=== PATIENT | male | born 1935 | race Caucasian/White ===

== ENCOUNTER 2018-12-25 11:32 | Emergency (ER) | payer OTHER, MEDICARE ==
[2018-12-25] MEDS ORDERED: Sodium Chloride 0.9% 10 ML Syringe FLUSH PRN (11:48)
[2018-12-25 12:35] LABS: CHLORIDE,CL 97 mmol/L (98-107); SODIUM,NA 136 mmol/L (136-145)
--- NOTE | 2018-12-25 12:38 | EDM.PDOC ---
ED HPI GENERAL MEDICAL PROBLEM - General Stated Complaint: NUMBSNESS AND CHEST PAIN Time Seen by Provider: 12/25/18 12:00 Source of Information: Reports: Patient History Limitations: Reports: No Limitations - History of Present Illness INITIAL COMMENTS - FREE TEXT/NARRATIVE: Pt. presents to ER via wheelchair. He initially was brought to the clinic but he was sent to the ER. Pt. primary complaint is that of substernal chest pain, shortness of breath, and weakness in his hands. Pt. has a longstanding history of CAD and has chronic diastolic CHF. Pt. has been retaining increased fluid over the past week- states that he is 215 but typically is at 205. Pt. also has a history of stage 3 CKD. Pt. significant other states that the patient was not complaining of anything when she left to go exercise this AM. She states that he was complaining of the numbness in his hands, increased shortness of breath and chest pain when she got home. She made an appointment for the patient at the clinic who subsequently sent him to be seen in ED. On arrival to ED, pt. reported that his chest pain was starting to resolve. Pt. stated the the chest pain was worse with deep breathing. Onset: Today Onset Date: 12/25/18 Location: Reports: Chest Middle Chest Pain Score (Numeric/FACES): 4 - Related Data Allergies Allergy/AdvReac Type Severity Reaction Status Date / Time amoxicillin Allergy Rash Verified 12/25/18 12:39 simvastatin [From Zocor] Allergy Leg Cramps Verified 12/25/18 12:39 Home Meds: Home Meds Finasteride [Proscar] 5 mg PO DAILY 05/01/14 [History] Pravastatin [Pravachol] 20 mg PO DAILY 05/01/14 [History] Tamsulosin [Flomax] 0.4 mg PO BEDTIME 05/01/14 [History] Warfarin [Coumadin] 2.5 mg PO DAILY 03/16/15 [History] Albuterol [Ventolin HFA] 2 puff INH Q4H PRN 04/29/15 [History] Aspirin [Halfprin] 81 mg PO DAILY 04/29/15 [History] Magnesium Oxide 400 mg PO DAILY 04/29/15 [History] Nitroglycerin [Nitrostat] 0.4 mg SL Q5M PRN 04/29/15 [History] Omeprazole 20 mg PO DAILY 04/29/15 [History] Pramipexole [Mirapex] 2 - 3 tab PO ASDIRECTED 04/29/15 [History] Tiotropium [Spiriva HandiHaler] 18 mcg INH DAILY 04/29/15 [History] Zinc 100 mg PO DAILY 04/29/15 [History] Furosemide [Lasix] 60 mg PO BID 03/28/16 [History] Lutein/Minerals/Vit A,C & E [Ocuvite] 1 tab PO DAILY 05/27/17 [History] Memantine HCl [Namenda] 5 mg PO BID 05/27/17 [History] Metoprolol Tartrate 37.5 mg PO BID 05/27/17 [History] Non-Formulary Medication [NF Drug] 50 mg PO DAILY@12 05/27/17 [History] metOLazone [Metolazone] 2.5 mg PO WEEKLY PRN 05/27/17 [History] Tiotropium Br/Olodaterol HCl [Stiolto Respimat Inhal [place]] 4 gm IH DAILY [History] Diclofenac Sodium [Voltaren] 1 applic TP BEDTIME PRN 08/07/17 [History] ED ROS GENERAL - Review of Systems Review Of Systems: See Below Constitutional: Reports: No Symptoms HEENT: Reports: No Symptoms Respiratory: Reports: Shortness of Breath Cardiovascular: Reports: Chest Pain Endocrine: Reports: No Symptoms GI/Abdominal: Reports: No Symptoms : Reports: No Symptoms Musculoskeletal: Reports: No Symptoms Skin: Reports: No Symptoms Neurological: Reports: No Symptoms Psychiatric: Reports: No Symptoms Hematologic/Lymphatic: Reports: No Symptoms Immunologic: Reports: No Symptoms ED EXAM, GENERAL - Physical Exam Exam: See Below Exam Limited By: No Limitations General Appearance: Alert, WD/WN, No Apparent Distress Eye Exam: Bilateral Eye: EOMI, PERRL Throat/Mouth: Normal Inspection, Normal Lips, Normal Teeth, Normal Gums, Normal Oropharynx, Normal Voice, No Airway Compromise Head: Atraumatic, Normocephalic Neck: Normal Inspection, Supple, Non-Tender, Full Range of Motion Respiratory/Chest: No Respiratory Distress, Normal Breath Sounds, No Accessory Muscle Use, Chest Non-Tender, Crackles (crackles in the bases of both lungs) Cardiovascular: Normal Peripheral Pulses, Regular Rate, Rhythm, No JVD, Systolic Murmur, Irregularly Irregular Peripheral Pulses: 4+: Radial (R) GI/Abdominal: Normal Bowel Sounds, Soft, Non-Tender, No Organomegaly, No Distention, No Mass (Male) Exam: Deferred Rectal (Males) Exam: Deferred Back Exam: Normal Inspection, Full Range of Motion Extremities: Normal Inspection, Non-Tender, Pedal Edema Neurological: Alert, Oriented, CN II-XII Intact, Normal Cognition, Normal Gait, Normal Reflexes, No Motor/Sensory Deficits Psychiatric: Normal Affect, Normal Mood Skin Exam: Warm, Dry, Intact, Normal Color, No Rash Lymphatic: No Adenopathy EKG INTERPRETATION Rhythm: A-Fib [place]: Normal P-Wave: Present QRS: Normal ST-T: Normal QT: Normal Course - Vital Signs Last Recorded V/S: Last Vital Signs Temp 36.2 C 12/25/18 11:32 Pulse 80 12/25/18 11:32 Resp 20 12/25/18 11:32 BP 119/83 12/25/18 11:32 Pulse Ox 93 L 12/25/18 11:32 - Orders/Labs/Meds Orders: Active Orders 24 hr Category Date Time Status EKG Documentation Completion [RC] STAT Care 12/25/18 11:48 Active Sodium Chloride 0.9% [Saline Flush] Med 12/25/18 11:48 Active 10 ml FLUSH ASDIRECTED PRN Peripheral IV Insertion Adult [OM.PC] Routine Oth 12/25/18 11:49 Ordered Medication Orders Sodium Chloride (Saline Flush) 10 ml FLUSH ASDIRECTED PRN PRN Reason: Keep Vein Open Labs: Laboratory Tests 12/25/18 12/25/18 12/25/18 Range/Units 11:48 11:55 11:55 WBC 7.2 (4.0-10.0) x10^3/uL RBC 3.89 L (4.5-6.0) x10^6/uL Hgb 11.3 L (14.0-18.0) g/dL Hct 35.1 L (40.0-52.0) % MCV 90.2 D (78.0-93.0) fL MCH 29.0 (26.0-32.0) pg MCHC 32.2 (32.0-36.0) g/dL RDW Coeff of [place] 15.2 H (10.0-15.0) % Plt Count 163 (130-400) x10^3/uL Add Manual Diff Yes Neutrophils % (Manual) 79 (50-80) % Band Neutrophils % 1 (0-6) % Lymphocytes % (Manual) 4 L (25-50) % Monocytes % (Manual) 7 (2-11) % Eosinophils % (Manual) 3 (0-4) % Metamyelocytes % 4 H (0) % Myelocytes % 2 H (0) % Hypersegmented Neuts Rare H Platelet Estimate Adequate PT 17.0 H (10.0-12.8) SEC INR 1.5 L (2.0-3.5) Sodium (136-145) mmol/L Potassium (3.5-5.1) mmol/L Chloride (98-107) mmol/L Carbon Dioxide (21-32) mmol/L Anion Gap (10-20) mmol/L BUN (7-18) mg/dL Creatinine (0.70-1.30) mg/dL Est Cr Clr Drug Dosing Estimated GFR (MDRD) Glucose (74-106) mg/dL Calcium (8.5-10.1) mg/dL Corrected Calcium (8.5-10.1) mg/dL Phosphorus (2.6-4.7) mg/dL Magnesium (1.8-2.4) mg/dL Total Bilirubin (0.2-1.0) mg/dL AST (15-37) U/L ALT (16-63) U/L Alkaline Phosphatase (46-116) U/L Troponin I (<=0.056) ng/mL C-Reactive Protein (<=0.9) mg/dL NT-Pro-B Natriuret Pep (<=450) pg/mL Total Protein (6.4-8.2) g/dL Albumin (3.4-5.0) g/dL Globulin Albumin/Globulin Ratio TSH, Ultra Sensitive (0.358-3.74) uIU/mL Urine Color Yellow (YELLOW) Urine Appearance Clear (CLEAR) Urine pH 7.0 (5.0-8.0) Ur Specific [place] 1.015 Urine Protein Negative (NEGATIVE) mg/dL Urine Glucose (UA) Negative (NEGATIVE) mg/dL Urine Ketones Negative (NEGATIVE) mg/dL Urine Occult Blood Negative (NEGATIVE) Urine Nitrite Negative (NEGATIVE) Urine Bilirubin Negative (NEGATIVE) Urine Urobilinogen 1.0 (0.2) EU/dL Ur Leukocyte Esterase Negative (NEGATIVE) Urine RBC 0-5 (NOT SEEN) /HPF Urine WBC Not seen (NOT SEEN) /HPF Ur Squamous Epith Cells Rare (NEGATIVE) /HPF Urine Bacteria Occasional H (NEGATIVE) /HPF Urine Mucus Rare H (NEGATIVE) /LPF 12/25/18 Range/Units 11:55 WBC (4.0-10.0) x10^3/uL RBC (4.5-6.0) x10^6/uL Hgb (14.0-18.0) g/dL Hct (40.0-52.0) % MCV (78.0-93.0) fL MCH (26.0-32.0) pg MCHC (32.0-36.0) g/dL RDW Coeff of [place] (10.0-15.0) % Plt Count (130-400) x10^3/uL Add Manual Diff Neutrophils % (Manual) (50-80) % Band Neutrophils % (0-6) % Lymphocytes % (Manual) (25-50) % Monocytes % (Manual) (2-11) % Eosinophils % (Manual) (0-4) % Metamyelocytes % (0) % Myelocytes % (0) % Hypersegmented Neuts Platelet Estimate PT (10.0-12.8) SEC INR (2.0-3.5) Sodium 136 (136-145) mmol/L Potassium 3.7 (3.5-5.1) mmol/L Chloride 97 L (98-107) mmol/L Carbon Dioxide 33 H (21-32) mmol/L Anion Gap 9.7 L (10-20) mmol/L BUN 29 H (7-18) mg/dL Creatinine 1.3 (0.70-1.30) mg/dL Est Cr Clr Drug Dosing TNP Estimated GFR (MDRD) 53 Glucose 97 (74-106) mg/dL Calcium 8.5 (8.5-10.1) mg/dL Corrected Calcium 10.02 (8.5-10.1) mg/dL Phosphorus 3.7 (2.6-4.7) mg/dL Magnesium 1.7 L (1.8-2.4) mg/dL Total Bilirubin 0.7 (0.2-1.0) mg/dL AST 21 (15-37) U/L ALT 18 (16-63) U/L Alkaline Phosphatase 106 (46-116) U/L Troponin I < 0.017 (<=0.056) ng/mL C-Reactive Protein 2.5 H (<=0.9) mg/dL NT-Pro-B Natriuret Pep 3508 H (<=450) pg/mL Total Protein 5.5 L (6.4-8.2) g/dL Albumin 2.1 L (3.4-5.0) g/dL Globulin 3.4 Albumin/Globulin Ratio 0.62 TSH, Ultra Sensitive 4.954 H (0.358-3.74) uIU/mL Urine Color (YELLOW) Urine Appearance (CLEAR) Urine pH (5.0-8.0) Ur Specific [place] Urine Protein (NEGATIVE) mg/dL Urine Glucose (UA) (NEGATIVE) mg/dL Urine Ketones (NEGATIVE) mg/dL Urine Occult Blood (NEGATIVE) Urine Nitrite (NEGATIVE) Urine Bilirubin (NEGATIVE) Urine Urobilinogen (0.2) EU/dL Ur Leukocyte Esterase (NEGATIVE) Urine RBC (NOT SEEN) /HPF Urine WBC (NOT SEEN) /HPF Ur Squamous Epith Cells (NEGATIVE) /HPF Urine Bacteria (NEGATIVE) /HPF Urine Mucus (NEGATIVE) /LPF Meds: Medications Generic Name Dose Route Start Last Admin Trade Name Freq PRN Reason Stop Dose Admin Sodium Chloride 10 ml 12/25/18 11:48 Saline Flush FLUSH ASDIRECTED PRN Keep Vein Open Departure - Departure Time of Disposition: 12:58 Disposition: Home, Self-Care 01 Condition: Good Clinical Impression: Atypical chest pain, CHF, Congestive heart failure - Discharge Information Instructions: Heart Failure, [id number] Referrals: Dior Orantes, [Primary Care Provider] - Forms: ED Department Discharge Additional Instructions: Home to rest. Continue with current medications at this time. Contact clinic or return to ER if you have any increased shortness of breath, chest pain, or lightheadedness. - Problem List Review Problem List Initiated/Reviewed/Updated: Yes - My Orders Last 24 Hours: My Active Orders 12/25/18 11:48 EKG Documentation Completion [RC] STAT Sodium Chloride 0.9% [Saline Flush] 10 ml FLUSH ASDIRECTED PRN 12/25/18 11:49 Peripheral IV Insertion Adult [OM.PC] Routine - Assessment/Plan Last 24 Hours: My Active Orders 12/25/18 11:48 EKG Documentation Completion [RC] STAT Sodium Chloride 0.9% [Saline Flush] 10 ml FLUSH ASDIRECTED PRN 12/25/18 11:49 Peripheral IV Insertion Adult [OM.PC] Routine Plan: Pt. symptoms had resolved during his stay in ER without any intervention. Pt. was offered admission for observation but refused. He was advised to return to ER if he has recurrence of his chest pain, shortness of breath. His INR is subtheraputic. He will double his coumadin dose today to 5 mg and will contact the INR clinic to set up recheck of INR.
[2018-12-25 12:45] LABS: ANION GAP 9.7 mmol/L (10-20)
--- NOTE | 2018-12-25 12:49 | CR ---
[id number] RAD/RAD Chest PA or AP 1V EXAM: SINGLE VIEW CHEST. INDICATION: SHORTNESS OF BREATH. CHEST PAIN. COMPARISON: CORRELATION IS MADE WITH THE CAT SCAN OF NOVEMBER 20, 2017. FINDINGS: Residual pleural-parenchymal changes of the right lung base are seen remaining stable. The lungs otherwise are clear. The cardiomediastinal contour is unchanged. Consider CT angiography of the pulmonary arteries if there is concern for pulmonary embolus IMPRESSION: NO CHANGE IN PLAIN FILM APPEARANCE OF CHEST. Davi Toro MD 12/25/18 0746 Thank you for allowing us to participate in the care of your patient.
[2018-12-25 14:55] VITALS: BP 123/73
== END 2018-12-25 13:15 | disposition home or self-care (01) ==
LOC: VM.ED 11:32
DX: I50.32 Chronic diastolic (congestive) heart failure (principal); I25.10 Atherosclerotic heart disease of native coronary artery without angina pectoris; N18.3 Chronic kidney disease, stage 3 (moderate); Z79.82 Long term (current) use of aspirin; Z88.1 Allergy status to other antibiotic agents; Z88.8 Allergy status to other drugs, medicaments and biological substances; Z79.899 Other long term (current) drug therapy
CPT/HCPCS: 71045; 80053; 81001; 83735; 83880; 84100; 84443; 84484; 85025; 85610; 86140; 93005; 93010; 99284-GF; 99285-25

== ENCOUNTER 2019-04-02 16:32 | Emergency (ER) | payer MEDICARE, OTHER ==
[2019-04-02 16:49] VITALS: BP 131/82; PULSE 81
--- NOTE | 2019-04-02 17:09 | EDM.PDOC ---
ED HPI GENERAL MEDICAL PROBLEM - General Chief Complaint: Eye Problems Stated Complaint: EYE ISSUE Time Seen by Provider: 04/02/19 16:45 - History of Present Illness INITIAL COMMENTS - FREE TEXT/NARRATIVE: blood in left eye, started x 30 minutes ago, slight pain. No trauma to area. Onset: Today Right Eye Pain Score (Numeric/FACES): 4 - Related Data Allergies Allergy/AdvReac Type Severity Reaction Status Date / Time amoxicillin Allergy Rash Verified 04/02/19 16:44 simvastatin [From Zocor] Allergy Leg Cramps Verified 04/02/19 16:44 Home Meds: Home Meds Finasteride [Proscar] 5 mg PO DAILY 05/01/14 [History] Pravastatin [Pravachol] 20 mg PO DAILY 05/01/14 [History] Tamsulosin [Flomax] 0.4 mg PO BEDTIME 05/01/14 [History] Warfarin [Coumadin] 2.5 mg PO DAILY 03/16/15 [History] Albuterol [Ventolin HFA] 2 puff INH Q4H PRN 04/29/15 [History] Aspirin [Halfprin] 81 mg PO DAILY 04/29/15 [History] Magnesium Oxide 400 mg PO DAILY 04/29/15 [History] Nitroglycerin [Nitrostat] 0.4 mg SL Q5M PRN 04/29/15 [History] Omeprazole 20 mg PO DAILY 04/29/15 [History] Pramipexole [Mirapex] 2 - 3 tab PO ASDIRECTED 04/29/15 [History] Tiotropium [Spiriva HandiHaler] 18 mcg INH DAILY 04/29/15 [History] Zinc 100 mg PO DAILY 04/29/15 [History] Lutein/Minerals/Vit A,C & E [Ocuvite] 1 tab PO DAILY 05/27/17 [History] Memantine HCl [Namenda] 5 mg PO BID 05/27/17 [History] Metoprolol Tartrate 37.5 mg PO BID 05/27/17 [History] Non-Formulary Medication [NF Drug] 50 mg PO DAILY@12 05/27/17 [History] metOLazone [Metolazone] 2.5 mg PO WEEKLY PRN 05/27/17 [History] Tiotropium Br/Olodaterol HCl [Stiolto Respimat Inhal [place]] 4 gm IH DAILY [History] Diclofenac Sodium [Voltaren] 1 applic TP BEDTIME PRN 08/07/17 [History] Furosemide [Lasix] 40 mg PO BID 03/05/19 [History] Potassium Chloride [Klor-Con] 20 meq PO BID 03/05/19 [History] Past Medical History HEENT History: Reports: Macular Degeneration Social & Family History - Tobacco Use Smoking Status *Q: Never Smoker - Recreational Drug Use Recreational Drug Use: No ED ROS GENERAL - Review of Systems Review Of Systems: See Below Constitutional: Reports: No Symptoms HEENT: Reports: Other (blood in sciera right eye, decreased vision ) Respiratory: Reports: No Symptoms Cardiovascular: Reports: No Symptoms Endocrine: Reports: No Symptoms GI/Abdominal: Reports: No Symptoms : Reports: No Symptoms Musculoskeletal: Reports: No Symptoms Skin: Reports: No Symptoms Neurological: Reports: No Symptoms Psychiatric: Reports: No Symptoms Hematologic/Lymphatic: Reports: No Symptoms Immunologic: Reports: No Symptoms ED EXAM GENERAL W FULL EYE - Physical Exam Exam: See Below Text/Narrative:: Discussed with Dr. [facility], pt with subconjunctival hemorrhage. Eyedrops for eye, cool compress, pt to follow up in his clinic tomorrow at 10:30 Exam Limited By: No Limitations General Appearance: Alert, WD/WN, No Apparent Distress Visual Acuity (R) 20/: 400 IOP Measure with (Equipment): (Bleeding into sciera right eye, decreased vision , no trauma,) Eyelids: Bilateral: Normal Appearance Conjunctiva & Sclera: Right: Subconjuctival Hemorrhage Ears: Normal External Exam, Normal Canal Nose: Normal Inspection, Normal Mucosa Throat/Mouth: Normal Inspection Head: Atraumatic, Normocephalic Neck: Normal Inspection, Supple Respiratory/Chest: No Respiratory Distress Cardiovascular: Normal Peripheral Pulses Neurological: Alert, Oriented Psychiatric: Normal Affect, Normal Mood Skin Exam: Warm, Dry, Intact Course - Vital Signs Last Recorded V/S: Last Vital Signs Temp 35.8 C 04/02/19 16:35 Pulse 81 04/02/19 16:35 Resp 16 04/02/19 16:35 BP 131/82 04/02/19 16:35 Pulse Ox 95 04/02/19 16:35 Departure - Departure Time of Disposition: 17:10 Disposition: Home, Self-Care 01 Condition: Good Clinical Impression: Subconjunctival hemorrhage of right eye - Discharge Information Instructions: Subconjunctival Hemorrhage Referrals: Dior Orantes DO [Primary Care Provider] - Additional Instructions: Dr. Green [facility] [address] [place] [address], [place] [address] Appointment 10:30 04/03/19 Eyedrops as needed tonight, cool compress over right eye
== END 2019-04-02 17:20 | disposition home or self-care (01) ==
LOC: VM.ED 16:32
DX: H11.31 Conjunctival hemorrhage, right eye (principal); Z79.899 Other long term (current) drug therapy; Z79.01 Long term (current) use of anticoagulants; Z79.82 Long term (current) use of aspirin; Z88.1 Allergy status to other antibiotic agents; Z88.8 Allergy status to other drugs, medicaments and biological substances
CPT/HCPCS: 99283; 99283-GF

== ENCOUNTER 2019-10-10 10:11 | Inpatient (IN) | payer OTHER, MEDICARE ==
[2019-10-10] MEDS ORDERED: Sodium Chloride 0.9% 10 ML Syringe FLUSH PRN (10:46)
--- NOTE | 2019-10-10 10:50 | EDM.PDOC ---
ED HPI GENERAL MEDICAL PROBLEM - General Chief Complaint: General Stated Complaint: weakness Time Seen by Provider: 10/10/19 10:35 Source of Information: Reports: Patient History Limitations: Reports: No Limitations - History of Present Illness INITIAL COMMENTS - FREE TEXT/NARRATIVE: Patient comes emergency department today from home with complaints of generalized weakness. He relates over the past 3 weeks he has been struggling with loose stools about 3-4 times a day. NO recent anti-biotic usage. No recent travel. And no one else has been ill. This morning when he woke up he just felt weak unsteady short of breath. Fatigue and malaise any just cannot do his physical activity as he typically would. He has no pain in his chest. No palpitations. No syncope. No change in his visual acuity. No headache. No visual disturbances. No paresthesias of his upper or lower extremities and no change in the functionality of his upper or lower extremities. No abdominal pain no nausea or vomiting. As previously reported he is reported loose stools for 3 weeks. No hematuria dysuria or urinary frequency. No flank pain. 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 Right Flank Pain Score (Numeric/FACES): 6 - Related Data Allergies Allergy/AdvReac Type Severity Reaction Status Date / Time amoxicillin Allergy Rash Verified 10/10/19 10:41 simvastatin [From Zocor] Allergy Leg Cramps Verified 10/10/19 10:41 Home Meds: Home Meds Finasteride [Proscar] 5 mg PO DAILY 05/01/14 [History] Pravastatin [Pravachol] 20 mg PO DAILY 05/01/14 [History] Tamsulosin [Flomax] 0.4 mg PO BEDTIME 05/01/14 [History] Warfarin [Coumadin] 2.5 mg PO DAILY 03/16/15 [History] Albuterol [Ventolin HFA] 2 puff INH Q4H PRN 04/29/15 [History] Aspirin [Halfprin] 81 mg PO DAILY 04/29/15 [History] Magnesium Oxide 400 mg PO DAILY 04/29/15 [History] Nitroglycerin [Nitrostat] 0.4 mg SL Q5M PRN 04/29/15 [History] Omeprazole 20 mg PO DAILY 04/29/15 [History] Zinc 100 mg PO DAILY 04/29/15 [History] Memantine HCl [Namenda] 10 mg PO BID 05/27/17 [History] Metoprolol Tartrate 37.5 mg PO BID 05/27/17 [History] metOLazone [Metolazone] 2.5 mg PO WEEKLY PRN 05/27/17 [History] Tiotropium Br/Olodaterol HCl [Stiolto Respimat Inhal [place]] 4 gm IH DAILY [History] Diclofenac Sodium [Voltaren] 1 applic TP BEDTIME PRN 08/07/17 [History] Furosemide [Lasix] 40 mg PO BID 03/05/19 [History] Multivitamin [Multivitamins] 1 each PO DAILY 10/10/19 [History] Phytonadione [Vitamin K] 100 mcg PO DAILY 10/10/19 [History] Triamterene 50 mg PO DAILY 10/10/19 [History] Past Medical History HEENT History: Reports: Hard of Hearing, Impaired Vision, Macular Degeneration Cardiovascular History: Reports: Afib, CAD, Heart Failure, High Cholesterol, Hypertension, Other (See Below) Other Cardiovascular History: stenosis of right carotid artery Respiratory History: Reports: Sleep Apnea, Other (See Below) Other Respiratory History: restrictive lung disease Gastrointestinal History: Reports: PUD Genitourinary History: Reports: BPH, Other (See Below) Other Genitourinary History: solitary kidney Musculoskeletal History: Reports: Arthritis Neurological History: Reports: Other (See Below) Other Neuro History: dementia Psychiatric History: Reports: Dementia Endocrine/Metabolic History: Reports: Other (See Below) Other Endocrine/Metabolic History: hyponatremia Hematologic History: Reports: Anemia - Past Surgical History Cardiovascular Surgical History: Reports: Coronary Artery Bypass Musculoskeletal Surgical History: Reports: Arthroscopic Knee Social & Family History - Tobacco Use Smoking Status *Q: Former Smoker Used Tobacco, but Quit: Yes Month/Year Tobacco Last Used: 1994 ED ROS GENERAL - Review of Systems Review Of Systems: Comprehensive ROS is negative, except as noted in HPI. ED EXAM, GENERAL - Physical Exam Exam: See Below Exam Limited By: Respiratory Distress (noted dyspnea can only speak in 3-5 word sentences.) General Appearance: Alert, WD/WN, Mild Distress Eye Exam: Bilateral Eye: EOMI Ears: Normal External Exam, Normal Canal Nose: Normal Inspection, Nasal Swelling Throat/Mouth: Normal Inspection, Normal Lips, Normal Oropharynx Head: Atraumatic, Normocephalic Neck: Normal Inspection, Supple, Non-Tender, Carotid Bruit Respiratory/Chest: Respiratory Distress (mild ), Decreased Breath Sounds, Crackles (about 1/[address] way up bilaterally. ), Rales (1/2 up both sides. ), Accessory Muscle Use (minimal ). No: Wheezing, Stridor, Retractions Cardiovascular: Normal Peripheral Pulses, Regular Rate, Rhythm GI/Abdominal: Normal Bowel Sounds, Soft, Non-Tender (Male) Exam: Deferred Rectal (Males) Exam: Deferred Back Exam: Normal Inspection, Full Range of Motion Extremities: Normal Inspection, Normal Range of Motion, Normal Capillary Refill , Pedal Edema (2+ bilaterally) Neurological: Alert, Oriented, Normal Cognition, No Motor/Sensory Deficits Psychiatric: Normal Affect, Normal Mood Skin Exam: Warm, Dry, Intact, Normal Color, No Rash EKG INTERPRETATION EKG Date: 10/10/19 Time: 22:55 Rhythm: A-Fib Rate (Beats/Min): 73 [place]: Normal P-Wave: Present QRS: Normal ST-T: Normal QT: Normal Comparison: No Change Course - Vital Signs Last Recorded V/S: Last Vital Signs Temp 36.0 C L 10/10/19 21:26 Pulse 89 10/10/19 21:26 Resp 18 10/10/19 21:26 BP 115/71 10/10/19 21:26 Pulse Ox 95 10/10/19 21:26 - Orders/Labs/Meds Orders: Active Orders 24 hr Category Date Time Status PROCALCITONIN [REF] Stat Lab 10/10/19 11:00 Received Sodium Chloride 0.9% [Saline Flush] Med 10/10/19 10:46 Active 10 ml FLUSH ASDIRECTED PRN Peripheral IV Insertion Adult [OM.PC] Stat Oth 10/10/19 10:44 Ordered Medication Orders Albuterol (Ventolin Hfa) 0 gm INH Q4H PRN PRN Reason: Shortness of Breath Aspirin (Halfprin) 81 mg PO DAILY [facility] Finasteride (Proscar) 5 mg PO DAILY [facility] Furosemide (Lasix) 60 mg IV BIDDIURETIC [facility] Magnesium Oxide (Magnesium Oxide) 400 mg PO DAILY [facility] Memantine (Namenda) 10 mg PO BID [facility] Last Admin: 10/10/19 19:48 Dose: 10 mg Metoprolol Tartrate (Lopressor) 37.5 mg PO BID [facility] Last Admin: 10/10/19 19:48 Dose: 37.5 mg Multivitamins/Minerals (Thera M Plus) 1 tab PO DAILY [facility] Stiolto Resp Inhaler (Own Med) 0 gm IH DAILY [facility] Triamterene 50 Mg (Own Med) 0 mg PO DAILY [facility] Omeprazole (Omeprazole) 20 mg PO DAILY [facility] Simvastatin (Zocor) 10 mg PO DAILY [facility] Sodium Chloride (Saline Flush) 10 ml FLUSH ASDIRECTED PRN PRN Reason: Keep Vein Open Last Admin: 10/10/19 11:06 Dose: 10 ml Tamsulosin HCl (Flomax) 0.4 mg PO BEDTIME [facility] Last Admin: 10/10/19 19:48 Dose: 0.4 mg Warfarin Sodium (Coumadin) 2.5 mg PO DAILY@1999 [facility] Last Admin: 10/10/19 19:48 Dose: 2.5 mg Zinc Gluconate (Zinc) 100 mg PO DAILY [facility] Labs: Laboratory Tests 10/10/19 10/10/19 10/10/19 Range/Units 11:00 11:00 11:00 WBC 7.3 (4.0-10.0) x10^3/uL RBC 4.07 L (4.5-6.0) x10^6/uL Hgb 11.1 L (14.0-18.0) g/dL Hct 35.6 L (40.0-52.0) % MCV 87.5 (78.0-93.0) fL MCH 27.3 (26.0-32.0) pg MCHC 31.2 L (32.0-36.0) g/dL RDW Coeff of Tyson 15.2 H (10.0-15.0) % Plt Count 186 (130-400) x10^3/uL Neut % (Auto) 85.9 H (50.0-80.0) % Lymph % (Auto) 3.8 L (25.0-50.0) % [place] % (Auto) 7.4 (2.0-11.0) % Eos % (Auto) 2.5 (0.0-4.0) % Baso % (Auto) 0.4 (0.2-1.2) % PT (10.0-12.8) SEC INR (2.0-3.5) Sodium 138 (136-145) mmol/L Potassium 4.0 (3.5-5.1) mmol/L Chloride 100 (98-107) mmol/L Carbon Dioxide 31 (21-32) mmol/L Anion Gap 11.0 (10-20) mmol/L BUN 32 H (7-18) mg/dL Creatinine 1.5 H (0.70-1.30) mg/dL Est Cr Clr Drug Dosing 35.47 mL/min Estimated GFR (MDRD) 45 Glucose 149 H (74-106) mg/dL Lactic Acid 1.1 (0.4-2.0) mmol/L Calcium 8.2 L (8.5-10.1) mg/dL Corrected Calcium 9.56 (8.5-10.1) mg/dL Magnesium 1.8 (1.8-2.4) mg/dL Total Bilirubin 0.4 (0.2-1.0) mg/dL AST 23 (15-37) U/L ALT 18 (16-63) U/L Alkaline Phosphatase 119 H (46-116) U/L Troponin I < 0.017 (<=0.056) ng/mL C-Reactive Protein 0.6 (<=0.9) mg/dL NT-Pro-B Natriuret Pep 4110 H (<=450) pg/mL Total Protein 5.7 L (6.4-8.2) g/dL Albumin 2.3 L (3.4-5.0) g/dL Globulin 3.4 Albumin/Globulin Ratio 0.68 Urine Color (YELLOW) Urine Appearance (CLEAR) Urine pH (5.0-8.0) Ur Specific [place] Urine Protein (NEGATIVE) mg/dL Urine Glucose (UA) (NEGATIVE) mg/dL Urine Ketones (NEGATIVE) mg/dL Urine Occult Blood (NEGATIVE) Urine Nitrite (NEGATIVE) Urine Bilirubin (NEGATIVE) Urine Urobilinogen (0.2) EU/dL Ur Leukocyte Esterase (NEGATIVE) 10/10/19 10/10/19 Range/Units 11:00 11:25 WBC (4.0-10.0) x10^3/uL RBC (4.5-6.0) x10^6/uL Hgb (14.0-18.0) g/dL Hct (40.0-52.0) % MCV (78.0-93.0) fL MCH (26.0-32.0) pg MCHC (32.0-36.0) g/dL RDW Coeff of Tyson (10.0-15.0) % Plt Count (130-400) x10^3/uL Neut % (Auto) (50.0-80.0) % Lymph % (Auto) (25.0-50.0) % [place] % (Auto) (2.0-11.0) % Eos % (Auto) (0.0-4.0) % Baso % (Auto) (0.2-1.2) % PT 24.4 H D (10.0-12.8) SEC INR 2.2 (2.0-3.5) Sodium (136-145) mmol/L Potassium (3.5-5.1) mmol/L Chloride (98-107) mmol/L Carbon Dioxide (21-32) mmol/L Anion Gap (10-20) mmol/L BUN (7-18) mg/dL Creatinine (0.70-1.30) mg/dL Est Cr Clr Drug Dosing mL/min Estimated GFR (MDRD) Glucose (74-106) mg/dL Lactic Acid (0.4-2.0) mmol/L Calcium (8.5-10.1) mg/dL Corrected Calcium (8.5-10.1) mg/dL Magnesium (1.8-2.4) mg/dL Total Bilirubin (0.2-1.0) mg/dL AST (15-37) U/L ALT (16-63) U/L Alkaline Phosphatase (46-116) U/L Troponin I (<=0.056) ng/mL C-Reactive Protein (<=0.9) mg/dL NT-Pro-B Natriuret Pep (<=450) pg/mL Total Protein (6.4-8.2) g/dL Albumin (3.4-5.0) g/dL Globulin Albumin/Globulin Ratio Urine Color Dark yellow H (YELLOW) Urine Appearance Slightly cloudy H (CLEAR) Urine pH 5.5 (5.0-8.0) Ur Specific [place] 1.015 Urine Protein Negative (NEGATIVE) mg/dL Urine Glucose (UA) Negative (NEGATIVE) mg/dL Urine Ketones Negative (NEGATIVE) mg/dL Urine Occult Blood Negative (NEGATIVE) Urine Nitrite Negative (NEGATIVE) Urine Bilirubin Negative (NEGATIVE) Urine Urobilinogen 0.2 (0.2) EU/dL Ur Leukocyte Esterase Negative (NEGATIVE) Meds: Medications Generic Name Dose Route Start Last Admin Trade Name Placidoq PRN Reason Stop Dose Admin Albuterol 0 gm 10/10/19 13:10 Ventolin Hfa INH Q4H PRN Shortness of Breath Aspirin 81 mg 10/11/19 08:00 Halfprin PO DAILY L[facility] Finasteride 5 mg 10/11/19 08:00 Proscar PO DAILY [facility] Furosemide 60 mg 10/11/19 09:00 Lasix IV BIDDIURETIC LARISA Magnesium Oxide 400 mg 10/11/19 08:00 Magnesium Oxide PO DAILY L[facility] Memantine 10 mg 10/10/19 20:00 10/10/19 19:48 Namenda PO 10 mg BID [facility] Administration Metoprolol Tartrate 37.5 mg 10/10/19 20:00 10/10/19 19:48 Lopressor PO 37.5 mg BID L[facility] Administration Multivitamins/Minerals 1 tab 10/11/19 08:00 Thera M Plus PO DAILY [facility] Stiolto Resp Inhaler 0 gm 10/11/19 08:00 Own Med IH DAILY [facility] Triamterene 50 Mg 0 mg 10/11/19 08:00 Own Med PO DAILY [facility] Omeprazole 20 mg 10/11/19 08:00 Omeprazole PO DAILY [facility] Simvastatin 10 mg 10/11/19 08:00 Zocor PO DAILY [facility] Sodium Chloride 10 ml 10/10/19 10:46 10/10/19 11:06 Saline Flush FLUSH 10 ml ASDIRECTED PRN Administration Keep Vein Open Tamsulosin HCl 0.4 mg 10/10/19 20:00 10/10/19 19:48 Flomax PO 0.4 mg BEDTIME L[facility] Administration Warfarin Sodium 2.5 mg 10/10/19 20:00 10/10/19 19:48 Coumadin PO 2.5 mg DAILY@1999 [facility] Administration Zinc Gluconate 100 mg 10/11/19 08:00 Zinc PO DAILY [facility] Discontinued Medications Generic Name Dose Route Start Last Admin Trade Name Placidoq PRN Reason Stop Dose Admin Furosemide 40 mg 10/10/19 11:46 10/10/19 11:56 Lasix IV 10/10/19 11:47 40 mg ONETIME ONE Administration Furosemide 20 mg 10/10/19 18:00 10/10/19 17:32 Lasix IV 10/10/19 18:01 20 mg ONETIME ONE Administration - Radiology Interpretation Free Text/Narrative:: Chest x-ray shows mild to moderate bilateral effusions which really appeared to me when reviewing his previous chest x-rays to be somewhat chronic. I also see some pulmonary vasculature congestion as well. - Re-Assessments/Exams Free Text/Narrative Re-Assessment/Exam: 10/10/19 21:40 The patient is noted to be dyspneic on exam. He is requiring 2 liters of oxygen to keep his sats up above 92% and with any physical activity he drops in the mid to low 80s. WE will try to get a stool culture. Lasix 40mg IVP. His CXR has pleural effusions per radiology and I question CHF as well. His creatinine is at about baseline. WE will admit to the hospital for observation. The patient is comfortable with this plan. 10/10/19 21:51 Departure - Departure Time of Disposition: 12:45 Disposition: Refer to Observation Clinical Impression: CHF, Congestive heart failure, Congenital absence of one kidney CKD (chronic kidney disease) Qualifiers: Chronic kidney disease stage: unspecified stage Qualified Code(s): N18.9 - Chronic kidney disease, unspecified Diarrhea Qualifiers: Diarrhea type: unspecified type Qualified Code(s): R19.7 - Diarrhea, unspecified - Discharge Information Sepsis Event Note - Evaluation Sepsis Screening Result: No Definite Risk - Focused Exam Vital Signs: Vital Signs Temp Pulse Resp BP Pulse Ox 10/10/19 12:27 128/85 98 10/10/19 10:23 35.5 C L 84 22 H 124/73 90 L Date Exam was Performed: 10/10/19 Time Exam was Performed: 21:50 - My Orders Last 24 Hours: My Active Orders 10/10/19 10:44 Peripheral IV Insertion Adult [OM.PC] Stat 10/10/19 10:46 Sodium Chloride 0.9% [Saline Flush] 10 ml FLUSH ASDIRECTED PRN 10/10/19 11:00 PROCALCITONIN [REF] Stat - Assessment/Plan Admission H&P: Please use this note as an admission H&P Last 24 Hours: My Active Orders 10/10/19 10:44 Peripheral IV Insertion Adult [OM.PC] Stat 10/10/19 10:46 Sodium Chloride 0.9% [Saline Flush] 10 ml FLUSH ASDIRECTED PRN 10/10/19 11:00 PROCALCITONIN [REF] Stat Assessment:: See Plan. Plan: A/P #1: CHF, will admit obs. With gentle diuresis, increase lasix to 60mg IV bid up from 40mg BID. Daily weight. Compression stockings. Heart health diet. Continue other previous home medications. #2: Hypoxia: from #1, oxygen keep sats above 92%. Repeat CXR on saturday if still here. Wean oxygen off. #3: CKD daily labs, gentle diuresis. #4: Diarrhea stool cultures pending. #5: Congenital absence of left kidney, gentle diuresis and daily labs. #6: A Fib, continue home coumadin daily INR. The patient is prescribed in his chart daily VItamin K, the patient is unsure if he is taking that. Doesn't make much sense with chronic coumadin that is therapeutic. #7: Generalized weakness PT/OT Sepsis lactic normal as well as WBC no signs of infection at this time will continue to monitor and evaluate prn. VTE: Currently on Coumadin and aspirin, continue in the hospital and TEDs as well.
--- NOTE | 2019-10-10 11:37 | CR ---
[id number] RAD/RAD Chest PA And Lateral EXAM: RAD Chest PA And Lateral CLINICAL DATA: SHORTNESS OF BREATH CHEST PAIN COMPARISON: CORRELATION IS MADE WITH DECEMBER 25, 2018 FINDINGS: Small to moderate bilateral effusions are seen The cardiac silhouette is stable There is no pneumonia or edema There is volume loss at the lung bases IMPRESSION: SMALL TO MODERATE BILATERAL EFFUSIONS Davi Toro MD 10/10/19 [id number] Thank you for allowing us to participate in the care of your patient.
[2019-10-10 11:41] LABS: SODIUM,NA 138 mmol/L (136-145)
[2019-10-10 11:43] LABS: CHLORIDE,CL 100 mmol/L (98-107)
[2019-10-10] MEDS ORDERED: Furosemide 40 MG/4 ML VIAL IV ONE (11:46)
[2019-10-10] MEDS ORDERED: Albuterol HFA 18 Gm Inhaler **OWN MED INH PRN (13:10)
[2019-10-10] MEDS ORDERED: Furosemide 20 MG/2 ML VIAL IV ONE (18:00)
[2019-10-10] MEDS: Metoprolol Tartrate 25 MG Tab PO SCH (19:48)
[2019-10-10] MEDS: Warfarin 2.5 MG Tab PO SCH (19:48)
[2019-10-10] MEDS: Tamsulosin 0.4 MG Cap.ER PO SCH (19:48)
[2019-10-10] MEDS: Memantine 10 MG Tab PO SCH (19:48)
[2019-10-11 08:13] LABS: ANION GAP 6.9 mmol/L (10-20)
[2019-10-11] MEDS: Furosemide 40 MG/4 ML VIAL IV SCH ×2 (09:12→16:16)
[2019-10-11] MEDS: Zinc (Zinc Gluconate) 50 MG Tab PO SCH (09:12)
[2019-10-11] MEDS: Metoprolol Tartrate 25 MG Tab PO SCH ×2 (09:13→20:14)
[2019-10-11] MEDS: Multivitamins with Iron/Calcium/Folic Acid/Minerals Tab PO SCH (09:16)
[2019-10-11] MEDS: Omeprazole 20 MG Cap.CR PO SCH (09:16)
[2019-10-11] MEDS: Finasteride 5 MG Tab PO SCH (09:16)
[2019-10-11] MEDS: Magnesium Oxide 400 MG Tab PO SCH (09:16)
[2019-10-11] MEDS: TRIAMTERENE 50 MG PO SCH (09:17)
[2019-10-11] MEDS: Simvastatin 10 MG Tab PO SCH (09:17)
[2019-10-11] MEDS: Aspirin 81 MG Tab.EC PO SCH (09:17)
[2019-10-11] MEDS: Memantine 10 MG Tab PO SCH ×2 (09:17→20:15)
[2019-10-11] MEDS: [UNRECOGNIZED DRUG - OTHER] IH SCH (09:18)
--- NOTE | 2019-10-11 13:47 | PCM.PN ---
- General Info Date of Service: 10/11/19 Admission Dx/Problem (Free Text): CHF Hypoxia CKD diarrhea A fib Generalized weakness Subjective Update: The patient relates that he is slept well during the night. He is not as dyspneic at rest as he was when he was admitted. But he still becomes quite short of breath and weak with ambulation. Functional Status: Reports: Pain Controlled, Ambulating - Review of Systems General: Reports: Weakness, Fatigue, Night Sweats. Denies: Malaise, Chills HEENT: Reports: No Symptoms Pulmonary: Reports: Shortness of Breath. Denies: Pleuritic Chest Pain, Cough Cardiovascular: Reports: Dyspnea on Exertion, Edema. Denies: Chest Pain, Palpitations, Orthopnea, Lightheadedness Gastrointestinal: Reports: No Symptoms Genitourinary: Reports: No Symptoms Musculoskeletal: Reports: No Symptoms Skin: Reports: No Symptoms Neurological: Reports: No Symptoms Psychiatric: Reports: No Symptoms - Patient Data Vitals - Most Recent: Last Vital Signs Temp 36.2 C 10/11/19 10:25 Pulse 76 10/11/19 09:13 Resp 20 10/11/19 10:25 BP 129/83 10/11/19 10:25 Pulse Ox 99 10/11/19 10:25 Weight - Most Recent: 90.356 kg I&O - Last 24 Hours: Intake & Output 10/10/19 10/11/19 10/11/19 22:59 06:59 14:59 Intake Total 360 300 Output Total 201 Balance 159 300 Lab Results Last 24 Hours: Laboratory Results - last 24 hr 10/11/19 10/11/19 10/11/19 Range/Units 07:48 07:48 07:48 WBC 6.3 (4.0-10.0) x10^3/uL RBC 4.52 (4.5-6.0) x10^6/uL Hgb 12.3 L (14.0-18.0) g/dL Hct 40.1 (40.0-52.0) % MCV 88.7 (78.0-93.0) fL MCH 27.2 (26.0-32.0) pg MCHC 30.7 L (32.0-36.0) g/dL RDW Coeff of Tyson 15.8 H (10.0-15.0) % Plt Count 188 (130-400) x10^3/uL Neut % (Auto) 80.0 (50.0-80.0) % Lymph % (Auto) 6.2 L (25.0-50.0) % [place] % (Auto) 8.9 (2.0-11.0) % Eos % (Auto) 4.7 H (0.0-4.0) % Baso % (Auto) 0.2 (0.2-1.2) % PT 22.0 H (10.0-12.8) SEC INR 1.9 L (2.0-3.5) Sodium 142 (136-145) mmol/L Potassium 3.9 (3.5-5.1) mmol/L Chloride 103 (98-107) mmol/L Carbon Dioxide 36 H (21-32) mmol/L Anion Gap 6.9 L (10-20) mmol/L BUN 32 H (7-18) mg/dL Creatinine 1.5 H (0.70-1.30) mg/dL Est Cr Clr Drug Dosing 25.93 mL/min Estimated GFR (MDRD) 45 Glucose 127 H (74-106) mg/dL Calcium 8.3 L (8.5-10.1) mg/dL NT-Pro-B Natriuret Pep (<=450) pg/mL 10/11/19 Range/Units 07:48 WBC (4.0-10.0) x10^3/uL RBC (4.5-6.0) x10^6/uL Hgb (14.0-18.0) g/dL Hct (40.0-52.0) % MCV (78.0-93.0) fL MCH (26.0-32.0) pg MCHC (32.0-36.0) g/dL RDW Coeff of [place] (10.0-15.0) % Plt Count (130-400) x10^3/uL Neut % (Auto) (50.0-80.0) % Lymph % (Auto) (25.0-50.0) % [place] % (Auto) (2.0-11.0) % Eos % (Auto) (0.0-4.0) % Baso % (Auto) (0.2-1.2) % PT (10.0-12.8) SEC INR (2.0-3.5) Sodium (136-145) mmol/L Potassium (3.5-5.1) mmol/L Chloride (98-107) mmol/L Carbon Dioxide (21-32) mmol/L Anion Gap (10-20) mmol/L BUN (7-18) mg/dL Creatinine (0.70-1.30) mg/dL Est Cr Clr Drug Dosing mL/min Estimated GFR (MDRD) Glucose (74-106) mg/dL Calcium (8.5-10.1) mg/dL NT-Pro-B Natriuret Pep 4689 H (<=450) pg/mL Med Orders - Current: Current Medications Albuterol (Ventolin Hfa) 0 gm INH Q4H PRN PRN Reason: Shortness of Breath Aspirin (Halfprin) 81 mg PO DAILY [facility] Last Admin: 10/11/19 09:17 Dose: 81 mg Finasteride (Proscar) 5 mg PO DAILY [facility] Last Admin: 10/11/19 09:16 Dose: 5 mg Furosemide (Lasix) 60 mg IV BIDDIURETIC [facility] Last Admin: 10/11/19 09:12 Dose: 60 mg Magnesium Oxide (Magnesium Oxide) 400 mg PO DAILY [facility] Last Admin: 10/11/19 09:16 Dose: 400 mg Memantine (Namenda) 10 mg PO BID [facility] Last Admin: 10/11/19 09:17 Dose: 10 mg Metoprolol Tartrate (Lopressor) 37.5 mg PO BID [facility] Last Admin: 10/11/19 09:13 Dose: 37.5 mg Multivitamins/Minerals (Thera M Plus) 1 tab PO DAILY [facility] Last Admin: 10/11/19 09:16 Dose: 1 tab Stiolto Resp Inhaler (Own Med) 0 gm IH DAILY [facility] Last Admin: 10/11/19 09:18 Dose: 1 gm Triamterene 50 Mg (Own Med) 0 mg PO DAILY [facility] Last Admin: 10/11/19 09:17 Dose: 50 mg Omeprazole (Omeprazole) 20 mg PO DAILY [facility] Last Admin: 10/11/19 09:16 Dose: 20 mg Simvastatin (Zocor) 10 mg PO DAILY [facility] Last Admin: 10/11/19 09:17 Dose: 10 mg Sodium Chloride (Saline Flush) 10 ml FLUSH ASDIRECTED PRN PRN Reason: Keep Vein Open Last Admin: 10/10/19 11:06 Dose: 10 ml Tamsulosin HCl (Flomax) 0.4 mg PO BEDTIME [facility] Last Admin: 10/10/19 19:48 Dose: 0.4 mg Warfarin Sodium (Coumadin) 2.5 mg PO DAILY@1999 [facility] Last Admin: 10/10/19 19:48 Dose: 2.5 mg Zinc Gluconate (Zinc) 100 mg PO DAILY [facility] Last Admin: 10/11/19 09:12 Dose: 100 mg Discontinued Medications Furosemide (Lasix) 40 mg IV ONETIME ONE Stop: 10/10/19 11:47 Last Admin: 10/10/19 11:56 Dose: 40 mg Furosemide (Lasix) 20 mg IV ONETIME ONE Stop: 10/10/19 18:01 Last Admin: 10/10/19 17:32 Dose: 20 mg - Exam Quality Assessment: Supplemental Oxygen, DVT Prophylaxis General: Alert, Oriented HEENT: Pupils Equal, Pupils Reactive Neck: Supple Lungs: Decreased Breath Sounds, Rales (bilaterally in the bases yesterday was about 1/[address] field bilaterally. Now more on L than the R. ) Cardiovascular: Irregular Rhythm. No: Murmurs GI/Abdominal Exam: Normal Bowel Sounds, Soft, Non-Tender (Male) Exam: Deferred Back Exam: Normal Inspection, Full Range of Motion. No: CVA Tenderness (L), CVA Tenderness (R) Extremities: Normal Inspection, Normal Range of Motion, Non-Tender, Pedal Edema (less than yesterday) Skin: Warm, Dry, Intact Psy/Mental Status: Alert, Normal Affect, Normal Mood Sepsis Event Note - Evaluation Sepsis Screening Result: No Definite Risk - Focused Exam Vital Signs: Vital Signs Temp Pulse Pulse Resp BP BP Pulse Ox 10/11/19 10:25 36.2 C 20 129/83 99 10/11/19 09:13 76 127/72 10/11/19 06:00 35.4 C L 89 18 123/73 98 Date Exam was Performed: 10/11/19 Time Exam was Performed: 16:31 - Problem List Review Problem List Initiated/Reviewed/Updated: Yes - My Orders Last 24 Hours: My Active Orders 10/10/19 12:58 Admission Status [Patient Status] [ADT] Routine 10/10/19 13:04 Height and Weight [RC] 0730 October Shower [RC] Up With Assistance [RC] OT Evaluation and Treatment [CONS] Routine PT Evaluation and Treatment [CONS] Routine Resuscitation Status Routine 10/10/19 13:06 Oxygen Therapy [RC] PRN VTE/DVT Education [RC] PER UNIT ROUTINE Vital Signs [RC] 02,06,10,,,10/10/19 13:07 Cardiac Monitoring [RC] 06,,,,,10/10/19 13:10 Albuterol [Ventolin HFA] 0 gm INH Q4H PRN 10/10/19 13:17 CULLEN Hose [Antiembolic Hose] [OM.PC] Routine 10/10/19 13:18 Antiembolic Devices [RC] 10/10/19 20:00 Memantine [Namenda] 10 mg PO BID Metoprolol Tartrate [Lopressor] 37.5 mg PO BID Tamsulosin [Flomax] 0.4 mg PO BEDTIME Warfarin [Coumadin] 2.5 mg PO DAILY@199910/10/19 21:42 Isolation [COMM] Stat 10/10/19 Dinner Heart Healthy Diet [DIET] 10/11/19 08:00 Aspirin [Halfprin] 81 mg PO DAILY Finasteride [Proscar] 5 mg PO DAILY Magnesium Oxide 400 mg PO DAILY Multivitamins w-Iron/Ca/FA/Min [Thera M Plus] 1 tab PO DAILY Omeprazole 20 mg PO DAILY Simvastatin [Zocor] 10 mg PO DAILY Tiotropium Br/Olodaterol HCl [Stiolto Respimat Inhal [place]] 0 gm IH DAILY Triamterene [Triamterene] 0 mg PO DAILY Zinc Gluconate [Zinc] 100 mg PO DAILY 10/11/19 09:00 Furosemide [Lasix] 60 mg IV BIDDIURETIC 10/11/19 09:50 CLOSTRIDIUM DIFFICILE TOX RFLX [MREF] Routine STOOL CULTURE [MREF] Stat 10/12/19 05:11 BASIC METABOLIC PANEL,BMP [CHEM] AM CBC WITH AUTO DIFF [HEME] AM INR,PT,PROTHROMBIN TIME [COAG] AM 10/12/19 07:00 Chest 1V Frontal [CR] Timed - Assessment Assessment:: See Plan. - Plan Plan:: #1: CHF, Improving. Although his sats do drop to 84% with ambulation without oxygen. Continue with the gentle diuresis. Will give an extra 20mg at this time for a total of 60 in the am and 80 in the PM but just for tonight. #2: Hypoxia: Still requiring at rest less than yesterday but still de-sats to 84 % on Room air with ambulation. Continue with supplementation. #3: CKD Stable creat at 1.5 continue to monitor #4: Diarrhea Still present waiting on lab results. #5: Congenital absence of left kidney, Continue therapy. gentle diuresis and daily labs. #6: A Fib, INR 1.9 no tachy episodes. Continue previous therapies. Continue to hold the home VIt K. Not sure why it is on his list chronically still. #7: Generalized weakness PT/OT eval tomorrow. Most likely from his hypoxia with ambulation should improve with continued improvement of his CHF. Hopefull discharge tomorrow.
[2019-10-11] MEDS ORDERED: Furosemide 20 MG/2 ML VIAL IV ONE (16:39)
[2019-10-11] MEDS: Tamsulosin 0.4 MG Cap.ER PO SCH (20:14)
[2019-10-11] MEDS: Warfarin 2.5 MG Tab PO SCH (20:14)
[2019-10-12 07:28] LABS: ANION GAP 7.9 mmol/L (10-20)
[2019-10-12] MEDS: [UNRECOGNIZED DRUG - OTHER] IH SCH (07:36)
[2019-10-12] MEDS: TRIAMTERENE 50 MG PO SCH (07:36)
[2019-10-12] MEDS: Metoprolol Tartrate 25 MG Tab PO SCH ×2 (07:37→21:39)
[2019-10-12] MEDS: Finasteride 5 MG Tab PO SCH (07:41)
[2019-10-12] MEDS: Aspirin 81 MG Tab.EC PO SCH (07:42)
[2019-10-12] MEDS: Omeprazole 20 MG Cap.CR PO SCH (07:42)
[2019-10-12] MEDS: Zinc (Zinc Gluconate) 50 MG Tab PO SCH (07:42)
[2019-10-12] MEDS: Multivitamins with Iron/Calcium/Folic Acid/Minerals Tab PO SCH (07:42)
[2019-10-12] MEDS: Simvastatin 10 MG Tab PO SCH (07:42)
[2019-10-12] MEDS: Memantine 10 MG Tab PO SCH ×2 (07:42→21:39)
[2019-10-12] MEDS: Magnesium Oxide 400 MG Tab PO SCH (07:42)
[2019-10-12] MEDS: Furosemide 40 MG/4 ML VIAL IV SCH ×2 (07:42→16:17)
--- NOTE | 2019-10-12 08:58 | CR ---
[id number] RAD/RAD Chest PA And Lateral Exam: RAD Chest PA And Lateral Indication:FOLLOW EDEMA. Comparison: October 10, 2019. Discussion: Cardiomegaly and central vascular congestion. Persistent small bilateral pleural effusions right greater than left. Effusions have decreased in size since the prior examination. Amount of parenchymal opacification is similar to the prior examination. Impression: Pleural effusions have slightly decreased in size since the prior examination. Otherwise, no significant change. Bernard Lowe MD 10/12/19 0857 Thank you for allowing us to participate in the care of your patient.
--- NOTE | 2019-10-12 18:37 | PN ---
Progress Note for ILGESIA SANDOVAL Date: 10/12/2019 Room #: VM.215 SUBJECTIVE: An 83-year-old hospital day #3 overall after being admitted on the evening of 10/09 for observation for heart failure. He has been diuresed for 5 pounds with Lasix. He is not feeling lightheaded or dizzy. He feels like his breathing has improved. His swelling in his legs has improved. He was on 40 mg of Lasix twice daily at home. His significant other had not given him any recent metolazone before this admission. He did have an x-ray last in the clinic a couple years ago. He has a known right pleural effusion. This was present on his x-rays today, but slightly improved from admission. He is not coughing or having any fevers. His significant other admits he was drinking like 2 to 3 beers per day. He has a history of doing this. Otherwise, he was having diarrhea like 2 to 3 times per day prior to admission. He was not on any recent antibiotics. They have him in C diff precautions. He does take magnesium daily. Stool sample has been sent off for further testing. The patient was up walking with nursing without oxygen and his sats dropped to 84%. He has been monitored with telemetry and he has been in AFib, but his rates are controlled. His creatinine has actually held slightly, improved at 1.3, since admission was 1.5. 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 OBJECTIVE: Vital Signs: His temperature is 96.2. His weight is 90.6 kg. His pulse is 71. His blood pressure is 114/73, respiratory rate 18, and O2 of 91 at rest on room air and 92 on 1 L. General: He is in no acute distress. Heart: Irregularly irregular. Lungs: Lung sounds are decreased bilaterally with crackles noted on that right base. Left lung did not appreciate crackles. Abdomen: Nondistended, nontender. Extremities: Warm and dry. He still has 1+ edema at his ankles. Mental Status: He is alert. He is orientated x3. He recognizes me. LABORATORY DATA: Lab work does show him to have a white count 6.7; hemoglobin 12.2, which is stable; platelets 190. INR 2.5. Sodium 146, potassium 3.9, chloride 37, BUN 7.9, creatinine 1.3, glucose 119, calcium 8.1. Troponin normal on admit. ProBNP did go up to 4689 yesterday. UA was normal on admit. ASSESSMENT AND PLAN: 1. Acute on chronic diastolic heart failure exacerbation. The patient has a known history of heart failure with EF of 65% back in 05/2016. He also had a stress test in 2017, which showed normal systolic function. 2. Pleural effusions, worse on the right, likely due to heart failure. 3. Acute hypoxic respiratory failure due to heart failure. We will get him in a home O2 eval prior to discharge. 4. Obstructive sleep apnea at home. He uses CPAP with oxygen. 5. Chronic kidney disease. His baseline creatinine is around 1.3 to 1.5, but was as low as 1.15 in May. 6. Atrial fibrillation, rate controlled. He is on the warfarin. 7. Unilateral kidney. 8. Diarrhea. He is only having about 2 to 3 stools per day. He has had some testing sent off. I am going to simply hold his magnesium and see if this helps. Encourage him to limit and stop beer. 9. Generalized weakness related to heart failure. I have therapies involved. Nursing feels that he is actually doing better, moving around now that he can breathe a little better. 10.History of stroke and likely some underlying vascular dementia. He has been doing quite well with the assistance of his lady friend. She helps some set up his medications. Lasix and warfarin will be filled locally due to dose changes [facility] 11.Coronary artery disease 12.Benign prostatic hyperplasia. We will check a bladder scan. He is on Proscar and Flomax. 13.Essential hypertension. Blood pressures are now controlled with diuresis. 14.Prediabetes. He has not had any issues with blood sugar. 15.History of peptic ulcer disease. He will remain on omeprazole. 16.Chronic obstructive pulmonary disease. He is on Stiolto. He does not use albuterol, so I discontinued it. PLAN: At this point, the patient will continue on acute cares. I will continue with IV Lasix 60 mg twice daily. I will stop magnesium. Repeat lab work in the morning. Decrease his warfarin down to 1.25 as he is alternating doses at home. Anticipate he may be able to be discharged as soon as tomorrow or possibly another day. GAIL: 10/12/2019 17:42:41 MODL: 10/12/2019 18:29:06 /[id number] JANINA
[2019-10-12] MEDS: Tamsulosin 0.4 MG Cap.ER PO SCH (21:39)
[2019-10-12] MEDS: Warfarin 2.5 MG Tab PO SCH (21:44)
[2019-10-13 07:19] LABS: ANION GAP 7.2 mmol/L (10-20)
[2019-10-13] MEDS: Furosemide 40 MG/4 ML VIAL IV SCH ×2 (08:08→16:37)
[2019-10-13] MEDS: Simvastatin 10 MG Tab PO SCH (08:08)
[2019-10-13] MEDS: Memantine 10 MG Tab PO SCH ×2 (08:08→21:10)
[2019-10-13] MEDS: Finasteride 5 MG Tab PO SCH (08:09)
[2019-10-13] MEDS: Zinc (Zinc Gluconate) 50 MG Tab PO SCH (08:09)
[2019-10-13] MEDS: Omeprazole 20 MG Cap.CR PO SCH (08:09)
[2019-10-13] MEDS: Metoprolol Tartrate 25 MG Tab PO SCH ×2 (08:09→21:19)
[2019-10-13] MEDS: Multivitamins with Iron/Calcium/Folic Acid/Minerals Tab PO SCH (08:09)
[2019-10-13] MEDS: Aspirin 81 MG Tab.EC PO SCH (08:09)
[2019-10-13] MEDS: [UNRECOGNIZED DRUG - OTHER] IH SCH (09:31)
[2019-10-13] MEDS: TRIAMTERENE 50 MG PO SCH (09:41)
[2019-10-13] MEDS ORDERED: Magnesium Sulfate/Water 2 GM in Premix Bag 1 BAG IV ONE (16:19)
[2019-10-13] MEDS: Warfarin 2.5 MG Tab PO SCH (21:09)
[2019-10-13] MEDS: Tamsulosin 0.4 MG Cap.ER PO SCH (21:10)
--- NOTE | 2019-10-13 21:11 | PN ---
Progress Note for IGLESIA SANDOVAL Date: 10/13/2019 Room #: VM.215 SUBJECTIVE: This is hospital acute day #2, hospital day overall #4 for an 83- year-old admitted with acute on chronic diastolic heart failure exacerbation. The patient feels like his breathing has improved. Unfortunately, he still has O2 saturations down to 82% on room air, up to 92 with just 1 L, but when he is up walking in the halls, he drops back down to 88% with the 1 L, but over 90% with 2 L. His leg swelling has improved overall. His diuresis has been 6 pounds. He is not feeling lightheaded or dizzy, but admits he feels tired, sort of weak from not doing much. He is denying any pain anywhere. No cough. No fevers. He has had a right-sided pleural effusion actually for the past few years, had been following up with Pulmonary at one point. He has a very remote history of renal cancer and has a unilateral kidney, but his kidney function is actually holding out well with diuresis. Nursing did not report any loose stools or diarrhea during the night. The patient himself said he had one at 3 a.m. There was also no bowel movements charted yesterday and two the day before. The patient had numerous voids. His postvoid residuals were all under 100. OBJECTIVE: Vital Signs: He has been afebrile. Temperature is 97.7, pulse 72, blood pressure 124/75, respiratory rate 18, O2 of 95% on 2 L. Weight 90.8 on the bed scale. General: He is in no acute distress. Heart: Irregularly irregular. Lungs: Sounds show decreased air entry with some fine crackles on the right base, but improved since yesterday. His left lung is clear. Abdomen: Nondistended, nontender. Extremities: Warm and dry with just trace edema to his ankles. Mental Status: He is alert. He is orientated x3. LABORATORY DATA: His lab work today does show him to have a white count of 7, hemoglobin 11.5, platelets 179. INR 2.7. Sodium 145, potassium 4.2, chloride 105, bicarb 37, BUN 30, creatinine 1.3, glucose 111, calcium 8.4, magnesium 1.8. Telemetry was reviewed. He had some bradycardia down to 40s and then he also had some tachycardia, possibly even V-tach. It appeared to change axis for 12 beats versus some atrial fibrillation which is known to him with aberrancy. The patient was asymptomatic during this. He has not had any chest pain. ASSESSMENT: 1. Acute on chronic diastolic heart failure exacerbation with ejection fraction 65% based on echo last done in 2016. 2. Pleural effusions, worse on the right, chronic, but improving with diuresis. 3. Acute hypoxic respiratory failure due to heart failure. We will continue with diuresis today 60 mg IV twice daily. 4. Obstructive sleep apnea, on CPAP and oxygen at home. 5. Chronic kidney disease, his baseline creatinine is around 1.3 to 1.5. It is now stable. 6. Atrial fibrillation, rate controlled. He is on warfarin. INR is therapeutic. We will dose him with 1.25 mg again tonight. 7. Unilateral kidney. 8. Diarrhea, intermittent, does not sound like he is having more than about 3 stools per day. We stopped magnesium. His level was okay at 1.8. We will give him some IV magnesium though if he has any further arrhythmias. I also encouraged him to avoid alcohol, especially beer. 9. Generalized weakness related to his heart failure. We will continue to have therapies work with him until discharge. 10.History of stroke with some underlying vascular dementia. 11.Coronary artery disease. 12.BPH, on Proscar and Flomax. 13.Essential hypertension. 14.Prediabetes. Blood sugars have been okay. 15.History of peptic ulcer disease, on omeprazole. 16.Chronic obstructive pulmonary disease, on Stiolto. PLAN: At this point, the patient will continue acute cares with IV diuresis. We will repeat all lab work in the morning including his INR. We will continue to monitor him on telemetry for any dysrhythmias. I anticipate that as long as he does well with no events overnight, he will be discharged home tomorrow. Also discussed code status with the patient who would not want CPR or intubation. Therefore, I will change him over to a code level 3. His C. difficile test did come back, is negative. His stool culture is pending, but I suspect his loose stools are more functional than any pathologic diarrhea. MKA: 10/13/2019 15:51:40 MODL: 10/13/2019 21:02:30 /[id number]
[2019-10-14] MEDS: Furosemide 40 MG/4 ML VIAL IV SCH (07:40)
[2019-10-14] MEDS: Metoprolol Tartrate 25 MG Tab PO SCH (07:41)
[2019-10-14] MEDS: Memantine 10 MG Tab PO SCH (07:41)
[2019-10-14] MEDS: Zinc (Zinc Gluconate) 50 MG Tab PO SCH (07:41)
[2019-10-14] MEDS: Multivitamins with Iron/Calcium/Folic Acid/Minerals Tab PO SCH (07:41)
[2019-10-14] MEDS: Omeprazole 20 MG Cap.CR PO SCH (07:41)
[2019-10-14] MEDS: Finasteride 5 MG Tab PO SCH (07:41)
[2019-10-14] MEDS: Simvastatin 10 MG Tab PO SCH (07:41)
[2019-10-14] MEDS: Aspirin 81 MG Tab.EC PO SCH (07:41)
[2019-10-14] MEDS: [UNRECOGNIZED DRUG - OTHER] IH SCH (07:42)
[2019-10-14] MEDS: TRIAMTERENE 50 MG PO SCH (07:42)
--- NOTE | 2019-10-14 09:14 | CR ---
[id number] RAD/RAD Chest PA And Lateral EXAM: FRONTAL AND LATERAL CHEST INDICATION: SHORTNESS OF BREATH. COMPARISON: October 12, 2019. DISCUSSION: Stable cardiomegaly with increased central vascular congestion. Minimal change in small to moderate right and small left pleural effusions. Sternotomy. IMPRESSION: 1. Congestive heart failure with increased mild pulmonary edema and stable small to moderate right and small left pleural effusions. Suleiman Lopez MD 10/14/19 0913 Thank you for allowing us to participate in the care of your patient.
[2019-10-14 09:57] VITALS: BP 151/72; PULSE 79
--- NOTE | 2019-10-14 16:03 | DISCH ---
DATE OF OBSERVATION: 10/10/2019. PRIMARY DISCHARGE DIAGNOSES: 1. Acute on chronic diastolic heart failure, known EF of 65% back in 2016. 2. Pleural effusion, chronic on the right, improved slightly with diuresis. 3. Acute hypoxic respiratory failure due to congestive heart failure, improving with diuresis. 4. Obstructive sleep apnea, on CPAP and oxygen at home. 5. Chronic kidney disease, stable with creatinine at 1.2 on discharge. 6. Atrial fibrillation, chronic, rate controlled, anticoagulated with Coumadin. 7. Unilateral kidney due to remote history of cancer. 8. Intermittent loose stools. The patient feels like this has improved on discharge after holding magnesium. 9. Generalized weakness due to heart failure. He is up working with therapies and doing well. 10.History of stroke and underlying vascular dementia. 11.Coronary artery disease. 12.Benign prostatic hyperplasia without urinary retention. 13.Essential hypertension. 14.Prediabetes. 15.History of peptic ulcer disease. 16.Chronic obstructive pulmonary disease. 17.Bradycardia. Metoprolol decreased on discharge due to heart rates down to 34 with a 2-second pause, which was asymptomatic. He also had some slight tachycardia but none in the last 24 hours with faster beats of his atrial fibrillation with aberrancy. At this point, we will just adjust his medications and see how he does. REASON FOR ADMISSION: On the date of admission, this 83-year-old male came into the emergency room with increased edema and shortness of breath over the past few weeks. He also had weakness and loose stools 3 to 4 times a day. He had not been on any recent antibiotics. He denied abdominal pain. C. diff test negative. Stool cultures ordered and pending. The patient was admitted. He was placed on IV Lasix. He had weight loss of 6 pounds. He was down 2.5 L at least. He did not require any Lagunas catheter as he was emptying his bladder okay. He was having still some loose stools at times. We stopped his magnesium and this improved. However, his magnesium level was at 1.8 and he was having some aberrancy on his telemetry, so I did give him 2 g of IV magnesium. His proBNP was elevated. His troponin and procalcitonin, however, were normal. He had no chest pain during his stay. He had no cough, no fever, no chills. Normal white count. Otherwise, his creatinine was up to 1.5, but actually improved with diuresis. His baseline is around 1.3 to 1.5. Otherwise, he did have a home O2 eval. He was 82% on room air, went up to 92%, with 1 L but with exercise required 2 L to stay above 90%. Otherwise, UA was checked and was negative for any infection. PHYSICAL EXAMINATION: Vital Signs: Objectively, on discharge, his temperature is 97.3, his weight is 92.2 kg, pulse 70, blood pressure 128/78, respiratory rate 18, O2 of 95% on 2 L. General: He was in no acute distress. Heart: Regularly irregular. Lungs: His lung sounds are still decreased over on that right lung, but no crackles or wheezes. Left lung is clear. Abdomen: Nondistended, nontender. Extremities: Warm and dry. No edema. Mental Status: He is alert and orientated x3. DISCHARGE PLANS AND INSTRUCTIONS: The patient is going to be discharged home. He does have a significant other who helps him with his medications. He will be going on Home Health. He is to limit his alcohol with a beer to no more than 1 per day and his fluid intake for 1500 mL. He will use metolazone once a week if needed for increased fluid. He will have an INR and BMP and mag level drawn on 10/19/2019. He will visit with myself over the phone in the clinic on 10/22/2019. We decreased the metoprolol to 25 mg twice daily due to bradycardia. We also increased his Lasix to 60 mg twice daily which he has taken in the past. Discussed with [facility] that lasix needs to be filled locally due to frequent changes. We also changed his Coumadin from 1.25 and 2.5 tablets over to 2 mg daily and he will do that to keep more consistence with his INR. Otherwise, [id number] encounter occurred with myself on 10/14/2019. Reason for Home Health is for nursing for teaching and assessments as well as management of compliance with medication and frequent dose changes due to CHF and recent admit for heart failure. He will be homebound due to COVID pandemic currently as well as need for using oxygen and shortness of breath with increased activities making trips from home difficult and rare at this time. I will periodically review this plan of care. Consider repeating the Echo as an outpatient but due to COVID we will hold off on that. His pleural effusion by records dates back to 2013 and he previously followed with Pulmonary but they released him in 2018 due to stability. Greater 30 minutes spent on this discharge process. MKA: 10/14/2019 13:01:54 MODL: 10/14/2019 15:57:24 /[id number] JANINA
== END 2019-10-14 13:50 | disposition home health service (06) | DRG 291 ==
LOC: VM.ED 10:11 → VM.MS 12:58 → OBSVTOIN 10-12 08:56
PROVIDERS: ADMIT Internal Medicine; ATTEND Internal Medicine
DX: I13.0 Hypertensive heart and chronic kidney disease with heart failure and stage 1 through stage 4 chronic kidney disease, or unspecified chronic kidney disease (principal); I50.33 Acute on chronic diastolic (congestive) heart failure; J96.01 Acute respiratory failure with hypoxia; I48.20 Chronic atrial fibrillation, unspecified; G47.33 Obstructive sleep apnea (adult) (pediatric); R53.1 Weakness; F01.50 Vascular dementia, unspecified severity, without behavioral disturbance, psychotic disturbance, mood disturbance, and anxiety; H54.7 Unspecified visual loss; H91.90 Unspecified hearing loss, unspecified ear; H35.30 Unspecified macular degeneration; I48.91 Unspecified atrial fibrillation; E78.00 Pure hypercholesterolemia, unspecified; J44.9 Chronic obstructive pulmonary disease, unspecified; Z87.11 Personal history of peptic ulcer disease; N18.9 Chronic kidney disease, unspecified; R00.1 Bradycardia, unspecified; Q60.0 Renal agenesis, unilateral; I25.10 Atherosclerotic heart disease of native coronary artery without angina pectoris; F03.90 Unspecified dementia, unspecified severity, without behavioral disturbance, psychotic disturbance, mood disturbance, and anxiety; Z95.1 Presence of aortocoronary bypass graft; N40.0 Benign prostatic hyperplasia without lower urinary tract symptoms; Z88.1 Allergy status to other antibiotic agents; M19.90 Unspecified osteoarthritis, unspecified site; D64.9 Anemia, unspecified; R19.7 Diarrhea, unspecified; Z86.73 Personal history of transient ischemic attack (TIA), and cerebral infarction without residual deficits; Z88.0 Allergy status to penicillin; Z88.8 Allergy status to other drugs, medicaments and biological substances; Z79.01 Long term (current) use of anticoagulants; Z79.82 Long term (current) use of aspirin; Z79.899 Other long term (current) drug therapy; Z87.891 Personal history of nicotine dependence
CPT/HCPCS: 36415; 51798; 71046; 80048; 80053; 81003; 83605; 83735; 83880; 84145; 84484; 85025; 85610; 86140; 87045; 87046; 87493; 93005; 94760; 96374; 96376; 97116-GP; 97161-GP; 97165-GO; 99285-25; A9270-GY; G0378; J1940; J3475

== ENCOUNTER 2020-02-23 14:35 | Inpatient (IN) | payer MEDICARE, OTHER ==
[2020-02-23] MEDS ORDERED: Sodium Chloride 0.9% 10 ML Syringe FLUSH PRN (15:10)
[2020-02-23 16:04] LABS: CHLORIDE,CL 96 mmol/L (98-107); SODIUM,NA 136 mmol/L (136-145)
[2020-02-23] MEDS: Furosemide 40 MG/4 ML VIAL IV SCH (16:07)
--- NOTE | 2020-02-23 16:08 | CR ---
[id number] RAD/RAD Chest PA And Lateral EXAM: RAD Chest PA And Lateral INDICATION: SHORTNESS OF BREATH. COMPARISON: September 2019. DISCUSSION: Cardiomegaly and central vascular congestion. Small bilateral pleural effusions. Findings are similar to the prior examination in September 2019. Correlate for CHF exacerbation. No evidence of pneumonia or other acute findings. IMPRESSION: As above. Bernard Lowe MD 02/23/20 5089 Thank you for allowing us to participate in the care of your patient.
[2020-02-23 16:11] LABS: ANION GAP 10.3 mmol/L (10-20)
[2020-02-23] MEDS ORDERED: Albuterol HFA 18 Gm Inhaler INH PRN (16:19)
[2020-02-23] MEDS ORDERED: Nitroglycerin 0.4 MG Tab.SL SL PRN (16:19)
[2020-02-23] MEDS: Potassium Chloride 10 MEQ Tab.ER PO SCH (16:58)
[2020-02-23] MEDS: Albuterol/Ipratropium 3.0-0.5 MG/3 ML Neb Soln INH SCH (18:16)
--- NOTE | 2020-02-23 19:12 | HP ---
CHIEF COMPLAINT: Shortness of breath and hypoxia. HISTORY OF PRESENT ILLNESS: This is an 84-year-old male who comes to the clinic by himself by senior nina today for medication management. He had his laboratory work yesterday. His O2 saturations were below 90%. He was visibly short of breath with ambulation and he dropped down to 82%. We took off his mask, and then he did recover to 91. The patient had had hospitalization for heart failure back in September and was on oxygen on discharge but is no longer using it. He has noticed some increased leg swelling. He has gained about 4 pounds in 2 weeks. The patient feels the humidity causes his shortness of breath also, and he does have underlying COPD and is on Stiolto. Has not had any worsening cough or fevers. He is forgetful about his medications because his friend manages them. I was unable to get hold of her. Normally, he will take an extra 1/2 to 1 tablet of metolazone a week for edema. He does have chronic kidney disease and has had previous kidney resection due to cancer. He had a creatinine yesterday that was 1.2, which is at or below his baseline. His potassium was 3.4. He is not on any supplements. He is also on triamterene. The patient is voiding okay. He is still having loose stools. He drinks about 1 to 2 cans of beer per day. He does have a chronic right-sided pleural effusion going back over 5 years ago. He has previously seen Pulmonary. He has not had any recent evaluation of that. He also has not had any recent evaluation of his heart. His last echo showed an EF of 65% in 2016 and in 2017, he had a normal PET scan. The patient also had a history of coronary disease in the past. We did adjust his metoprolol after his last admission due to bradycardia. He is also on Coumadin for atrial fibrillation and has had a previous stroke. The patient had his bypass surgery of his heart in 1991. The patient has a history of sleep apnea as well as restrictive lung disease. ALLERGIES: Include amoxicillin, rash; simvastatin intolerance; and leg pain to Zocor. MEDICATIONS: His medication list is reviewed. Currently, he is on Coumadin 2 mg daily and 3 mg on Mondays and Fridays. Otherwise, he is on Lasix 60 mg twice daily; Lopressor 25 b.i.d.; Flomax 0.4 at bedtime; Zaroxolyn 2.5, 1/2 to 1 tablet every week as needed for weight gain over 3 pounds; Pravachol 20 mg daily, Stiolto 2 puffs once daily; albuterol inhaler p.r.n.; triamterene 50 mg daily; Prilosec 20 mg daily; Namenda 10 mg b.i.d.; nitroglycerin as needed for chest pain; Metamucil daily; aspirin 81 mg daily; Voltaren gel as needed; vitamin B complex; zinc; vitamin K 100 mcg daily; Proscar 5 mg daily; and multivitamin. It should also be noted that patient has significant knee arthritis. He did have a knee injection last on 12/30/2019. PAST MEDICAL HISTORY: Includes renal cell cancer; right kidney resected in 1994; coronary artery disease, status post CABG; diastolic CHF; essential hypertension; paroxysmal atrial fibrillation; carotid artery stenosis, moderate; obstructive sleep apnea; chronic right pleural effusion; thoracentesis last in 2013; restrictive lung disease; hyponatremia; prediabetes; hyperlipidemia; hyperglycemia; dementia without behavioral disturbance, his Mini-Mental was 19/30 back in 2017; macrocytic anemia; regular alcohol use; previous stroke, lacunar infarcts; periodic limb movement disorder; restless legs syndrome; peptic ulcer disease; prostate nodules; solitary kidney; knee arthritis of the right knee; and retinal detachment remotely. PAST SURGICAL HISTORY: The patient has had tonsillectomy, renal cancer surgery, right knee replacement, coronary artery bypass surgery, and cataracts. SOCIAL HISTORY: The patient is . He has a daughter who has dementia. He has a significant other. His other son . He quit smoking many years ago. 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 FAMILY HISTORY: Both parents are . REVIEW OF SYSTEMS: General: The patient has had weight gain. No fever. No chills. Cardiac: No chest pain. No palpitations. Respiratory: He has been short of breath but no cough. Musculoskeletal: No joint pains but has had increased leg swelling. Otherwise, all systems reviewed and found to be negative unless otherwise stated. PHYSICAL EXAMINATION: Vital Signs: On patient's admission to the hospital, his weight is 85.4 kg, temperature 97.1, pulse 77, blood pressure 129/70, respiratory rate 18, and O2 of 92% without the mask but again patient's O2 saturations are down in the 82%, 84%, and 85% range consistently with ambulation. General: He is in no acute distress. Heart: Regular rate and rhythm. S1, S2 without murmur. Lungs: Lung sounds are decreased with crackles in both bases. Abdomen: Nondistended. Positive bowel sounds. Soft, nontender. Extremities: Warm and dry. He has 2+ edema to his ankles. Mental Status: He is alert. He is orientated that he is at the clinic. Initially when he answers a question about where his partner is, I do not think he heard me. Later, he is able to tell me she is in [place] and that he rode the senior bus here. LABORATORY DATA: Lab work reviewed does show white count 7.1, hemoglobin 11.1, and platelets 173. INR 2.6. Sodium 136, potassium 3.3, chloride 96, bicarbonate 33, BUN 31, creatinine 1.5, and calcium 8.1. ALT AST, bilirubin, and alkaline phosphatase are all normal. Troponin negative. ProBNP 3955. Albumin 2.7. Magnesium level was normal through the clinic yesterday. EKG does show atrial fibrillation at the hospital. X-ray shows a right-sided pleural effusion. ASSESSMENT AND PLAN: 1. Acute on chronic diastolic heart failure exacerbation. This is the second admission in the last 4 months. We will need to get an echocardiogram on this discharge. We will diurese the patient with intravenous Lasix 40 mg intravenous twice daily. We will hold his oral Lasix, and I will increase his triamterene up to 100 mg due to his low potassium. I will also give him oral potassium replacements. 2. Atrial fibrillation, paroxysmal. He seemed not to be in atrial fibrillation in the clinic but now is in atrial fibrillation. We will place him on telemetry. We will continue Coumadin. INR is therapeutic. He is rate controlled. 3. Chronic kidney disease with unilateral kidney. Creatinine actually just above his baseline today. We will diurese him and monitor renal function closely. 4. Anemia, mild. The patient has a history of chronic anemia. His hemoglobin was 12 yesterday, could be from dilution. We will repeat tomorrow. He has no signs of bleeding. 5. Cognitive impairment with dementia. We will get him involved with therapy. 6. Obstructive sleep apnea. 7. Essential hypertension. 8. Coronary disease. PLAN: At this point, the patient's admission is for heart failure. It appears to be a subacute thing. He does not appear to have any acute coronary syndrome. We will diurese him with IV Lasix. Monitor laboratories. Monitor on telemetry. Get him involved with therapies, and I anticipate he will be discharged home in the next 2 to 3 days. Code level 3 MKA: 02/23/2020 16:43:40 MODL: 02/23/2020 19:07:03 /[id number]
[2020-02-23] MEDS: Warfarin 2 MG Tab PO SCH (20:54)
[2020-02-23] MEDS: Memantine 10 MG Tab PO SCH (20:54)
[2020-02-23] MEDS: Metoprolol Tartrate 25 MG Tab PO SCH (20:54)
[2020-02-23] MEDS: Tamsulosin 0.4 MG Cap.ER PO SCH (20:54)
[2020-02-23] MEDS: Psyllium 0.52 GM Cap PO SCH (20:55)
[2020-02-24] MEDS: Albuterol/Ipratropium 3.0-0.5 MG/3 ML Neb Soln INH SCH ×4 (02:42→18:54)
[2020-02-24 06:46] LABS: ANION GAP 7.4 mmol/L (10-20)
[2020-02-24] MEDS: Potassium Chloride 10 MEQ Tab.ER PO SCH (08:30)
[2020-02-24] MEDS: Omeprazole 20 MG Cap.CR PO SCH (08:30)
[2020-02-24] MEDS: Furosemide 40 MG/4 ML VIAL IV SCH (08:30)
[2020-02-24] MEDS: Memantine 10 MG Tab PO SCH ×2 (08:31→20:44)
[2020-02-24] MEDS: Finasteride 5 MG Tab PO SCH (08:31)
[2020-02-24] MEDS: Multivitamins with Iron/Calcium/Folic Acid/Minerals Tab PO SCH (08:31)
[2020-02-24] MEDS: Simvastatin 10 MG Tab PO SCH (08:31)
[2020-02-24] MEDS: Phytonadione 100 MCG Tab PO SCH (08:31)
[2020-02-24] MEDS: Aspirin 81 MG Tab.EC PO SCH (08:31)
[2020-02-24] MEDS: Metoprolol Tartrate 25 MG Tab PO SCH ×2 (08:31→20:43)
[2020-02-24] MEDS: Vitamin B Complex Tab PO SCH (08:31)
[2020-02-24] MEDS: Zinc (Zinc Gluconate) 50 MG Tab PO SCH (08:31)
--- NOTE | 2020-02-24 09:25 | PCM.PN ---
- General Info Date of Service: 02/24/20 - Review of Systems Systems Review Comment:: H&P: Patient was admitted yesterday for CHF exacerbation. By chest x-ray and BNP. Given IV Lasix. Weight is down about 5 pounds overnight. Largely asymptomatic currently. Vital signs stable. Not requiring any supplemental oxygen. Heart RRR, mild basilar crackles, 1+ peripheral edema. A&P: CHF exacerbation. Seems largely back to baseline after IV Lasix. We will stop this and resume his home oral dose. Could do for repeat echocardiogram as outpatient. Has some acute on chronic renal insufficiency. Should be largely non- consequential, recheck chemistry in a.m. Potassium 3.4 today actually went up from yesterday. In chronic atrial fibrillation, on Coumadin. Has dementia, fall precautions in place. PT to see today to work on gait. Probable discharge in a.m. - Patient Data Vitals - Most Recent: Last Vital Signs Temp 35.6 C L 02/24/20 06:00 Pulse 73 02/24/20 08:31 Resp 15 02/24/20 06:00 BP 126/67 02/24/20 08:31 Pulse Ox 92 L 02/24/20 07:59 Weight - Most Recent: 83.143 kg I&O - Last 24 Hours: Intake & Output 02/23/20 02/24/20 02/24/20 22:59 06:59 14:59 Intake Total 160 120 Output Total 700 Balance -540 120 Lab Results Last 24 Hours: Laboratory Results - last 24 hr 02/23/20 02/23/20 02/23/20 Range/Units 15:27 15:27 15:27 WBC 7.1 (4.0-10.0) x10^3/uL RBC 4.03 L (4.5-6.0) x10^6/uL Hgb 11.1 L (14.0-18.0) g/dL Hct 34.9 L (40.0-52.0) % MCV 86.6 (78.0-93.0) fL MCH 27.5 (26.0-32.0) pg MCHC 31.8 L (32.0-36.0) g/dL RDW Coeff of [place] 14.5 (10.0-15.0) % Plt Count 173 (130-400) x10^3/uL Neut % (Auto) 81.1 H (50.0-80.0) % Lymph % (Auto) 5.9 L (25.0-50.0) % [place] % (Auto) 8.5 (2.0-11.0) % Eos % (Auto) 4.2 H (0.0-4.0) % Baso % (Auto) 0.3 (0.2-1.2) % PT 27.2 H (9.5-12.3) SEC INR 2.6 (2.0-3.5) Sodium 136 (136-145) mmol/L Potassium 3.3 L (3.5-5.1) mmol/L Chloride 96 L (98-107) mmol/L Carbon Dioxide 33 H (21-32) mmol/L Anion Gap 10.3 (10-20) mmol/L BUN 31 H (7-18) mg/dL Creatinine 1.5 H (0.70-1.30) mg/dL Est Cr Clr Drug Dosing 33.66 mL/min Estimated GFR (MDRD) 44 Glucose 101 (74-106) mg/dL Calcium 8.1 L (8.5-10.1) mg/dL Corrected Calcium 9.14 (8.5-10.1) mg/dL Magnesium (1.8-2.4) mg/dL Total Bilirubin 0.5 (0.2-1.0) mg/dL AST 23 (15-37) U/L ALT 20 (16-63) U/L Alkaline Phosphatase 94 (46-116) U/L Troponin I < 0.017 (<=0.056) ng/mL NT-Pro-B Natriuret Pep 3955 H (<=450) pg/mL Total Protein 5.7 L (6.4-8.2) g/dL Albumin 2.7 L (3.4-5.0) g/dL Globulin 3.0 Albumin/Globulin Ratio 0.90 02/24/20 02/24/20 02/24/20 Range/Units 06:18 06:18 06:18 WBC 6.3 (4.0-10.0) x10^3/uL RBC 3.98 L (4.5-6.0) x10^6/uL Hgb 11.0 L (14.0-18.0) g/dL Hct 34.8 L (40.0-52.0) % MCV 87.4 (78.0-93.0) fL MCH 27.6 (26.0-32.0) pg MCHC 31.6 L (32.0-36.0) g/dL RDW Coeff of [place] 14.7 (10.0-15.0) % Plt Count 153 (130-400) x10^3/uL Neut % (Auto) 78.0 (50.0-80.0) % Lymph % (Auto) 3.9 L (25.0-50.0) % [place] % (Auto) 10.7 (2.0-11.0) % Eos % (Auto) 7.1 H (0.0-4.0) % Baso % (Auto) 0.3 (0.2-1.2) % PT (9.5-12.3) SEC INR (2.0-3.5) Sodium 141 (136-145) mmol/L Potassium 3.4 L (3.5-5.1) mmol/L Chloride 101 (98-107) mmol/L Carbon Dioxide 36 H (21-32) mmol/L Anion Gap 7.4 L (10-20) mmol/L BUN 32 H (7-18) mg/dL Creatinine 1.6 H (0.70-1.30) mg/dL Est Cr Clr Drug Dosing 31.56 mL/min Estimated GFR (MDRD) 41 Glucose 107 H (74-106) mg/dL Calcium 8.2 L (8.5-10.1) mg/dL Corrected Calcium (8.5-10.1) mg/dL Magnesium 1.8 (1.8-2.4) mg/dL Total Bilirubin (0.2-1.0) mg/dL AST (15-37) U/L ALT (16-63) U/L Alkaline Phosphatase (46-116) U/L Troponin I (<=0.056) ng/mL NT-Pro-B Natriuret Pep (<=450) pg/mL Total Protein (6.4-8.2) g/dL Albumin (3.4-5.0) g/dL Globulin Albumin/Globulin Ratio Med Orders - Current: Current Medications Albuterol (Ventolin Hfa) 2 gm INH Q4H PRN PRN Reason: Shortness of Breath Albuterol (Proventil Neb Soln) 2.5 mg NEB Q4HRRT PRN PRN Reason: Shortness of Breath Albuterol/Ipratropium (Duoneb 3.0-0.5 Mg/3 Ml) 3 ml INH Q6HRRT [facility] Last Admin: 02/24/20 07:53 Dose: 3 ml Documented by: Aspirin (Halfprin) 81 mg PO DAILY [facility] Last Admin: 02/24/20 08:31 Dose: 81 mg Documented by: Finasteride (Proscar) 5 mg PO DAILY [facility] Last Admin: 02/24/20 08:31 Dose: 5 mg Documented by: Furosemide (Lasix) 60 mg PO BID [facility] Memantine (Namenda) 10 mg PO BID [facility] Last Admin: 02/24/20 08:31 Dose: 10 mg Documented by: Metoprolol Tartrate (Lopressor) 25 mg PO BID [facility] Last Admin: 02/24/20 08:31 Dose: 25 mg Documented by: Multivitamins/Minerals (Thera M Plus) 1 tab PO DAILY [facility] Last Admin: 02/24/20 08:31 Dose: 1 tab Documented by: Nitroglycerin (Nitrostat) 0.4 mg SL Q5M PRN PRN Reason: Chest Pain Non-Formulary Medication (Triamterene [Triamterene]) 100 mg PO DAILY@1200 LARISA Omeprazole (Omeprazole) 20 mg PO DAILY [facility] Last Admin: 02/24/20 08:30 Dose: 20 mg Documented by: Phytonadione (Vitamin K) 100 mcg PO DAILY [facility] Last Admin: 02/24/20 08:31 Dose: 100 mcg Documented by: Potassium Chloride (Klor-Con 10) 40 meq PO WITHBREAKFAST [facility] Last Admin: 02/24/20 08:30 Dose: 40 meq Documented by: Psyllium Hydrophilic Mucilloid (Metamucil) 0.52 gm PO BEDTIME [facility] Last Admin: 02/23/20 20:55 Dose: Not Given Documented by: Simvastatin (Zocor) 10 mg PO DAILY [facility] Last Admin: 02/24/20 08:31 Dose: 10 mg Documented by: Sodium Chloride (Saline Flush) 10 ml FLUSH ASDIRECTED PRN PRN Reason: Keep Vein Open Last Admin: 02/24/20 08:34 Dose: 10 ml Documented by: Tamsulosin HCl (Flomax) 0.4 mg PO BEDTIME [facility] Last Admin: 02/23/20 20:54 Dose: 0.4 mg Documented by: Vitamin B Complex (Vitamin B Complex) 1 each PO DAILY [facility] Last Admin: 02/24/20 08:31 Dose: 1 each Documented by: Warfarin Sodium (Coumadin) 2 mg PO BEDTIME [facility] Last Admin: 02/23/20 20:54 Dose: 2 mg Documented by: Zinc Gluconate (Zinc) 50 mg PO DAILY [facility] Last Admin: 02/24/20 08:31 Dose: 50 mg Documented by: Discontinued Medications Furosemide (Lasix) 40 mg IV BIDDIURETIC [facility] Last Admin: 02/24/20 08:30 Dose: 40 mg Documented by: Sepsis Event Note - Evaluation Sepsis Screening Result: No Definite Risk - Focused Exam Vital Signs: Vital Signs Temp Pulse Pulse Resp BP BP Pulse Ox 02/24/20 08:31 73 126/67 02/24/20 07:59 02/24/20 06:00 35.6 C L 73 15 126/67 94 L 02/24/20 01:51 36.1 C 75 15 114/76 93 L 02/23/20 22:00 36.3 C 80 15 120/72 97 Pulse Ox 02/24/20 08:31 02/24/20 07:59 92 L 02/24/20 06:00 02/24/20 01:51 02/23/20 22:00 - Problem List Review Problem List Initiated/Reviewed/Updated: Yes - My Orders Last 24 Hours: My Active Orders 02/24/20 20:00 Furosemide [Lasix] 60 mg PO BID
[2020-02-24] MEDS ORDERED: Albuterol 0.083% 2.5 MG/3 ML Neb Soln INH PRN (09:30)
[2020-02-24] MEDS ORDERED: Spironolactone 25 MG Tab PO SCH (12:00)
[2020-02-24] MEDS: Furosemide 20 MG Tab PO SCH (16:27)
[2020-02-24] MEDS: Warfarin 2 MG Tab PO SCH (20:43)
[2020-02-24] MEDS: Tamsulosin 0.4 MG Cap.ER PO SCH (20:44)
[2020-02-24] MEDS: Psyllium 0.52 GM Cap PO SCH (20:45)
[2020-02-25] MEDS: Albuterol/Ipratropium 3.0-0.5 MG/3 ML Neb Soln INH SCH ×2 (01:36→07:09)
[2020-02-25 06:21] VITALS: BP 118/66; PULSE 77
[2020-02-25 06:55] LABS: ANION GAP 9.4 mmol/L (10-20)
[2020-02-25] MEDS: Omeprazole 20 MG Cap.CR PO SCH (08:59)
[2020-02-25] MEDS: Furosemide 20 MG Tab PO SCH (08:59)
[2020-02-25] MEDS: Simvastatin 10 MG Tab PO SCH (08:59)
[2020-02-25] MEDS: Zinc (Zinc Gluconate) 50 MG Tab PO SCH (08:59)
[2020-02-25] MEDS: Finasteride 5 MG Tab PO SCH (08:59)
[2020-02-25] MEDS: Memantine 10 MG Tab PO SCH (08:59)
[2020-02-25] MEDS: Phytonadione 100 MCG Tab PO SCH (08:59)
[2020-02-25] MEDS: Potassium Chloride 10 MEQ Tab.ER PO SCH (08:59)
[2020-02-25] MEDS: Vitamin B Complex Tab PO SCH (08:59)
[2020-02-25] MEDS: Aspirin 81 MG Tab.EC PO SCH (09:00)
[2020-02-25] MEDS: Metoprolol Tartrate 25 MG Tab PO SCH (09:00)
[2020-02-25] MEDS: Multivitamins with Iron/Calcium/Folic Acid/Minerals Tab PO SCH (09:00)
--- NOTE | 2020-02-25 10:26 | DISCH ---
PRIMARY DISCHARGE DIAGNOSES: 1. An acute on chronic heart failure exacerbation. The patient has known diastolic heart failure, but no echo repeated now for several years. 2. Atrial fibrillation, paroxysmal. He had no significant tachycardia. He did have 1 asymptomatic rate down to 42 during the night while sleeping. 3. Chronic kidney disease with unilateral kidney. Creatinine improved to 1.3 today on discharge. 4. Chronic anemia. Hemoglobin was stable around 11. No signs of bleeding. 5. Known cognitive impairment with at least moderate dementia. 6. Obstructive sleep apnea, on continuous positive airway pressure and oxygen. 7. Essential hypertension. 8. History of coronary artery disease. 9. Prediabetes. 10.Restrictive lung disease with chronic bronchitis. 11.Previous lacunar stroke. 12.Restless legs syndrome. 13.Remote history of peptic ulcer disease. 14.Severe osteoarthritis of the right knee. 15.Vision loss with history of retinal detachment. 16. Chronic pleural effusions REASON FOR ADMISSION: On the date of admission, this 84-year-old came into the clinic for a followup visit. He was found to be short of breath, especially walking up the hallway. His sats were down to 82% on room air. He had a previous admission for CHF in September. He was denying any chest pain or cough. No fevers. No abdominal pain. He did have crackles in his lungs on exam. Therefore, he had lab, x-ray, and EKG, and on admission was arranged for diuresis. The patient could not tell me if he had taken his metolazone in last few days or not. His significant other I was unable to reach. She had left town for the day. She manages all his medications. Back in 2016, he was already scoring on the cognitive eval for needing 24-hour supervision. The patient no longer drives due to some vision issues. He used to do cardiac rehab up until August and then that was stopped because of the pandemic. CXR showed pleural effusions. HOSPITAL COURSE: He was given IV Lasix. He diuresed for 6 pounds. His leg swelling resolved. His crackles in his lungs cleared up. He was no longer requiring oxygen, although he did have 2 L overnight with his CPAP which is his normal. His sats were up to 96% on 2 L that morning. Blood pressures were excellent. His creatinine and potassium and magnesium were monitored. His potassium was up to 3.4 from 3.3. We did increase his triamterene; however, that was not available at the hospital, so he got Aldactone and oral potassium. He continued on his home Coumadin. Normally, he takes 3 mg twice a week, but we gave him just 2 mg here and his INR was 3.3. He did have some bruising over the right arm from where they did the blood draw. Otherwise, the patient who had some loose stools at home reported a good bowel movement here and not having a BM for a couple of days. He was eating well. No cough. No fevers. PHYSICAL EXAMINATION: Vital Signs: Objectively, on discharge, his weight 82.8 kg, temperature 97.7, pulse 77, blood pressure 118/66, respiratory rate 19, O2 of 96% on 2 L. General: He is in no acute distress. Heart: Irregularly irregular. Lungs: His lung sounds are clear to auscultation bilaterally with slightly decreased in the base. Abdomen: Has positive bowel sounds. Nontender. Extremities: Warm and dry. No edema. Mental Status: He is alert. He is aware he is at the hospital. He recognizes me, did not know the specific date. DISCHARGE PLANS AND INSTRUCTIONS: He is going home with his significant other. gathering worker will meet with them also to see if she needs any additional assistance. If she is unable to provide him 24-hour supervision, I do recommend he move into assisted living. He will get an outpatient echo test to check the heart. Home Health will draw a BMP and INR on 02/28. He will have no Coumadin today and restart 2 mg tomorrow. We will increase his triamterene to 100 mg daily. He will take 2 of the 50 mg pills that he has on hand. He will keep Lasix the same at 60 mg twice daily and use the metolazone once a week if needed for fluid. He will take potassium 20 mEq daily. A 1-time prescription will be filled locally. Hopefully, this can be stopped soon. He will be off magnesium to help with the diarrhea. He will wear support stockings to help with leg swelling. He will continue his CPAP and I recommend he resume cardiac rehab. [id number] encounter for home health occurred on 02/25/2020. The primary reasons for Home Health are for teaching and assessments by nursing for CHF, PT for gait and mobility, and OT and speech for a cognitive assessment. Due to his memory loss due to dementia and CHF, absences from home require taxing effort and supervision. He also has vision loss. I will periodically review this plan of care. Greater than 30 minutes spent. MKA: 02/25/2020 08:46:13 MODL: 02/25/2020 09:39:38 /[id number] JANINA
== END 2020-02-25 11:00 | disposition home health service (06) | DRG 291 ==
LOC: VM.MS 14:37
PROVIDERS: ADMIT Internal Medicine; ATTEND Internal Medicine
DX: I13.0 Hypertensive heart and chronic kidney disease with heart failure and stage 1 through stage 4 chronic kidney disease, or unspecified chronic kidney disease (principal); I50.33 Acute on chronic diastolic (congestive) heart failure; I48.0 Paroxysmal atrial fibrillation; N18.9 Chronic kidney disease, unspecified; D64.9 Anemia, unspecified; F03.90 Unspecified dementia, unspecified severity, without behavioral disturbance, psychotic disturbance, mood disturbance, and anxiety; G47.33 Obstructive sleep apnea (adult) (pediatric); I25.10 Atherosclerotic heart disease of native coronary artery without angina pectoris; J42 Unspecified chronic bronchitis; G25.81 Restless legs syndrome; M17.11 Unilateral primary osteoarthritis, right knee; H54.7 Unspecified visual loss; Z86.73 Personal history of transient ischemic attack (TIA), and cerebral infarction without residual deficits; Z88.0 Allergy status to penicillin; Z79.899 Other long term (current) drug therapy; Z79.01 Long term (current) use of anticoagulants
CPT/HCPCS: 36415; 51798; 71046; 80048; 80053; 81003; 83735; 83880; 84484; 85025; 85610; 93005; 94640; 94760; 97161-GP; 97165-GO; A9270-GY; J1940; J7620-GY

== ENCOUNTER 2020-03-11 12:32 | Emergency (ER) | payer OTHER, MEDICARE ==
--- NOTE | 2020-03-11 12:54 | EDM.PDOC ---
ED HPI GENERAL MEDICAL PROBLEM - General Stated Complaint: FELL AND HIT HEAD INR 2.9 Time Seen by Provider: 03/11/20 12:48 Source of Information: Reports: Patient History Limitations: Reports: No Limitations - History of Present Illness INITIAL COMMENTS - FREE TEXT/NARRATIVE: Patient comes emergency department today with complaints of a fall and head injury. This patient just prior to arrival was trying to step up onto the scale when he lost his balance fell backwards striking the right posterior aspect of his head. There was no loss of consciousness. He does complain of some soreness to the right posterior occiput of the scalp. No visual disturbances. No paresthesias of his upper or lower extremities. No neck pain. No weakness dizziness lightheadedness. No change in the sensation of his upper or lower extremities and no change in the functionality of his upper or lower extremities. No chest pain or shortness of breath or difficulty breathing. No cough or congestion. No back pain. No pelvis pain. No injury to his upper or lower extremities. He is on long-term Coumadin and his INR was last checked it was 2.9 today. NO COVID exposure no COVID symptoms. He did initially complain of neck pain prior to arrival although he denies neck pain upon arrival and with exam. - Related Data Allergies Allergy/AdvReac Type Severity Reaction Status Date / Time amoxicillin Allergy Rash Verified 03/11/20 13:24 simvastatin [From Zocor] AdvReac Leg Cramps Verified 03/11/20 13:24 Home Meds: Home Meds Finasteride [Proscar] 5 mg PO DAILY 05/01/14 [History] Pravastatin [Pravachol] 20 mg PO DAILY 05/01/14 [History] Tamsulosin [Flomax] 0.4 mg PO BEDTIME 05/01/14 [History] Albuterol [Ventolin HFA] 2 puff INH Q4H PRN 04/29/15 [History] Aspirin [Halfprin] 81 mg PO DAILY 04/29/15 [History] Nitroglycerin [Nitrostat] 0.4 mg SL Q5M PRN 04/29/15 [History] Omeprazole 20 mg PO DAILY 04/29/15 [History] Zinc 50 mg PO DAILY 04/29/15 [History] Memantine HCl [Namenda] 10 mg PO BID 05/27/17 [History] metOLazone [Metolazone] 2.5 mg PO WEEKLY PRN 05/27/17 [History] Tiotropium Br/Olodaterol HCl [Stiolto Respimat Inhal [place]] 2 puff IH DAILY 06/17/17 [History] Diclofenac Sodium [Voltaren] 2 gram TOP BID PRN 08/07/17 [History] Multivitamin [Multivitamins] 1 tab PO DAILY 10/10/19 [History] Phytonadione [Vitamin K] 100 mcg PO DAILY 10/10/19 [History] Furosemide [Lasix] 60 mg PO BID #90 tablet 10/14/19 [Rx] Metoprolol Tartrate 25 mg PO BID #30 tablet 10/14/19 [Rx] Warfarin [Coumadin] 2 mg PO DAILY #30 tablet 10/14/19 [Rx] Psyllium [Metamucil] 0.52 gm PO BEDTIME 02/23/20 [History] Vitamin B Complex [B Complex] 1 tab PO DAILY 02/23/20 [History] aMILoride [Midamor] 5 mg PO BID 03/11/20 [History] Past Medical History HEENT History: Reports: Hard of Hearing, Impaired Vision, Macular Degeneration, Other (See Below) Other HEENT History: blepharitis. retinal detachment Cardiovascular History: Reports: Afib, CAD, Heart Failure, High Cholesterol, Hypertension, Other (See Below) Other Cardiovascular History: stenosis of right carotid artery Respiratory History: Reports: Sleep Apnea, Other (See Below) Other Respiratory History: restrictive lung disease. pleural effusion on right. dyspnea Gastrointestinal History: Reports: GI Bleed, PUD Genitourinary History: Reports: BPH, Other (See Below) Other Genitourinary History: solitary kidney. nocturia. solitary kidney. prostate nodule Musculoskeletal History: Reports: Arthritis Neurological History: Reports: Other (See Below) Other Neuro History: dementia. chronic fatigue syndrome. RLS Psychiatric History: Reports: Dementia Endocrine/Metabolic History: Reports: Other (See Below) Other Endocrine/Metabolic History: hyponatremia. hyperglycemia. prediabetes Hematologic History: Reports: Anemia Oncologic (Cancer) History: Reports: Renal Dermatologic History: Reports: Eczema - Past Surgical History Cardiovascular Surgical History: Reports: Coronary Artery Bypass Musculoskeletal Surgical History: Reports: Arthroscopic Knee Social & Family History - Caffeine Use Caffeine Use: Reports: Coffee Caffeine Use Comment: 4 cups in day ED ROS GENERAL - Review of Systems Review Of Systems: Comprehensive ROS is negative, except as noted in HPI. ED EXAM, HEAD INJURY - Physical Exam Exam: See Below Exam Limited By: No Limitations General Appearance: Alert, WD/WN, No Apparent Distress Head: Normocephalic, Scalp Swelling (Right occiput). No: Scalp Lacerations, Scalp Abrasions, Scalp Ecchymosis, Scalp Hematoma, Scalp Tenderness, Active Bleeding, Patel's Sign, Flap, Facial Abrasions, Facial Ecchymosis, Facial Lacerations, Facial Swelling, Sinus Tenderness, Facial Tenderness, Raccoon Eyes Nexus Criteria: No: Posterior, Midline Cervical Tenderness, Evidence of Intoxication, Altered Level of Consciousness, Focal Neurological Deficit, Painful Distraction Injuries Eyes: Bilateral Eye: EOMI, Normal Inspection, PERRL Ears: Normal External Exam, Normal Canal, Normal TMs Nose: Normal Inspection, Normal Mucousa, No Blood Throat/Mouth: Normal Inspection, Normal Lips, Normal Teeth, Normal Gums, Normal Oropharynx, Normal Voice, No Airway Compromise Neck: Non-Tender, Full Range of Motion, Normal Alignment, Normal Inspection Respiratory: No Respiratory Distress, Lungs Clear, Normal Breath Sounds, No Accessory Muscle Use, Chest Non-Tender Cardiovascular: Normal Peripheral Pulses, No Gallop, Irregularly Irregular GI/Abdominal Exam: Normal Bowel Sounds, Soft, Non-Tender, No Organomegaly, Pelvis Stable (Male) Exam: Deferred Rectal (Males) Exam: Deferred Back Exam: Normal Inspection, Full Range of Motion. No: CVA Tenderness (L), CVA Tenderness (R), Paraspinal Tenderness, Vertebral Tenderness Extremities: Normal Inspection, Normal Range of Motion, No Pedal Edema, Normal Capillary Refill Neurologic: spare person II-XII nml As Tested, No Motor/Sensory Deficits, Alert, Normal Mood/Affect, Oriented x 3 Skin: Normal Color, Warm/Dry - [place] Coma Score Best Eye Response ([place]): (4) Open Spontaneously Best Verbal Response ([place]): (5) Oriented Best Motor Response ([place]): (6) Obeys Commands Course - Orders/Labs/Meds Labs: Laboratory Tests 03/11/20 03/11/20 03/11/20 Range/Units 12:54 12:54 12:54 WBC 6.5 (4.0-10.0) x10^3/uL RBC 4.18 L (4.5-6.0) x10^6/uL Hgb 11.5 L (14.0-18.0) g/dL Hct 36.3 L (40.0-52.0) % MCV 86.8 (78.0-93.0) fL MCH 27.5 (26.0-32.0) pg MCHC 31.7 L (32.0-36.0) g/dL RDW Coeff of Tyson 14.8 (10.0-15.0) % Plt Count 171 (130-400) x10^3/uL Neut % (Auto) 79.3 (50.0-80.0) % Lymph % (Auto) 5.7 L (25.0-50.0) % [place] % (Auto) 8.8 (2.0-11.0) % Eos % (Auto) 5.9 H (0.0-4.0) % Baso % (Auto) 0.3 (0.2-1.2) % PT 30.8 H (9.5-12.3) SEC INR 3.0 (2.0-3.5) APTT 42.4 H (25.6-32.8) SEC Sodium 137 (136-145) mmol/L Potassium 3.8 (3.5-5.1) mmol/L Chloride 98 (98-107) mmol/L Carbon Dioxide 34 H (21-32) mmol/L Anion Gap 8.8 L (10-20) mmol/L BUN 20 H (7-18) mg/dL Creatinine 1.3 (0.70-1.30) mg/dL Est Cr Clr Drug Dosing TNP Estimated GFR (MDRD) 52 Glucose 101 (74-106) mg/dL Calcium 8.5 (8.5-10.1) mg/dL Corrected Calcium 9.30 (8.5-10.1) mg/dL Total Bilirubin 0.6 (0.2-1.0) mg/dL AST 22 (15-37) U/L ALT 21 (16-63) U/L Alkaline Phosphatase 107 (46-116) U/L Total Protein 6.3 L (6.4-8.2) g/dL Albumin 3.0 L (3.4-5.0) g/dL Globulin 3.3 Albumin/Globulin Ratio 0.91 Urine Color (YELLOW) Urine Appearance (CLEAR) Urine pH (5.0-8.0) Ur Specific [place] Urine Protein (NEGATIVE) mg/dL Urine Glucose (UA) (NEGATIVE) mg/dL Urine Ketones (NEGATIVE) mg/dL Urine Occult Blood (NEGATIVE) Urine Nitrite (NEGATIVE) Urine Bilirubin (NEGATIVE) Urine Urobilinogen (0.2) EU/dL Ur Leukocyte Esterase (NEGATIVE) 03/11/20 Range/Units 13:20 WBC (4.0-10.0) x10^3/uL RBC (4.5-6.0) x10^6/uL Hgb (14.0-18.0) g/dL Hct (40.0-52.0) % MCV (78.0-93.0) fL MCH (26.0-32.0) pg MCHC (32.0-36.0) g/dL RDW Coeff of [place] (10.0-15.0) % Plt Count (130-400) x10^3/uL Neut % (Auto) (50.0-80.0) % Lymph % (Auto) (25.0-50.0) % [place] % (Auto) (2.0-11.0) % Eos % (Auto) (0.0-4.0) % Baso % (Auto) (0.2-1.2) % PT (9.5-12.3) SEC INR (2.0-3.5) APTT (25.6-32.8) SEC Sodium (136-145) mmol/L Potassium (3.5-5.1) mmol/L Chloride (98-107) mmol/L Carbon Dioxide (21-32) mmol/L Anion Gap (10-20) mmol/L BUN (7-18) mg/dL Creatinine (0.70-1.30) mg/dL Est Cr Clr Drug Dosing Estimated GFR (MDRD) Glucose (74-106) mg/dL Calcium (8.5-10.1) mg/dL Corrected Calcium (8.5-10.1) mg/dL Total Bilirubin (0.2-1.0) mg/dL AST (15-37) U/L ALT (16-63) U/L Alkaline Phosphatase (46-116) U/L Total Protein (6.4-8.2) g/dL Albumin (3.4-5.0) g/dL Globulin Albumin/Globulin Ratio Urine Color Yellow (YELLOW) Urine Appearance Clear (CLEAR) Urine pH 7.0 (5.0-8.0) Ur Specific [place] 1.015 Urine Protein Negative (NEGATIVE) mg/dL Urine Glucose (UA) Negative (NEGATIVE) mg/dL Urine Ketones Negative (NEGATIVE) mg/dL Urine Occult Blood Negative (NEGATIVE) Urine Nitrite Negative (NEGATIVE) Urine Bilirubin Negative (NEGATIVE) Urine Urobilinogen 0.2 (0.2) EU/dL Ur Leukocyte Esterase Negative (NEGATIVE) - Re-Assessments/Exams Free Text/Narrative Re-Assessment/Exam: 03/11/20 14:29 Due to the mechanism of injury and the patient being on long-term anticoagulation therapy. The patient had a trauma code called upon arrival and they were available shortly thereafter. CT of the head per radiology shows no evidence of acute intracranial trauma. Some chronic changes due to chronic small vessel ischemia. Mild to moderate generalized atrophy. 03/11/20 14:30 Repeat of the primary and secondary survey does not elicit any new findings. Her his INR is therapeutic at 3.0. His neurological exam is unremarkable. His CT scan is negative for bleeds. We will discharge him home symptomatic management and recheck if he has any concerns. He is comfortable this plan his questions are answered. Departure - Departure Time of Disposition: 14:03 Disposition: Home, Self-Care 01 Clinical Impression: [facility] current use of anticoagulant therapy Closed head injury Qualifiers: Encounter type: initial encounter Qualified Code(s): S09.90XA - Unspecified injury of head, initial encounter - Discharge Information Instructions: Bleeding Precautions When on Anticoagulant Therapy, Adult, How to Use Cold Therapy, [id number], Head Injury, Adult, [id number] Referrals: Dior Orantes, [Primary Care Provider] - Additional Instructions: Home rest today. Tylenol as needed for pain. Ice to the sore areas. Return to the ED If new or worsening symptoms especially any changes in neuro status severe headache or vomiting. Recheck in the clinic in 4-6 days.
[2020-03-11 13:19] LABS: PTT,PARTIAL THROMBOPLSTIN TIME 42.4 SEC (25.6-32.8)
[2020-03-11 13:21] LABS: CHLORIDE,CL 98 mmol/L (98-107); SODIUM,NA 137 mmol/L (136-145)
[2020-03-11 13:23] LABS: ANION GAP 8.8 mmol/L (10-20)
--- NOTE | 2020-03-11 13:51 | CT ---
[id number] CT/CT Cervical Spine WO IV Exam: CT Cervical Spine WO IV Clinical Data: TRAUMA COMPARISON: NO PREVIOUS SIMILAR EXAM IS AVAILABLE FINDINGS: Extensive degenerative changes are seen There is no fracture or subluxation IMPRESSION: NO FRACTURE OR SUBLUXATION Davi Toro MD 03/11/20 [id number] Thank you for allowing us to participate in the care of your patient.
--- NOTE | 2020-03-11 13:52 | CT ---
[id number] CT/CT Head WO IV EXAM: NONCONTRAST HEAD CT INDICATION: FALL, HEAD INJURY, COUMADIN. COMPARISON: September 20, 2017. DISCUSSION: Right posterior scalp soft tissue swelling. Mild to moderate generalized atrophy. 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 A small chronic infarct is suggested in the right cerebellum. Mild multifocal white matter hypoattenuation is nonspecific, but generally ascribed to chronic small vessel ischemia. No mass effect or midline shift. No acute hemorrhage or extra-axial fluid collection. No acute territorial infarct is identified. A limited look at the orbits and paranasal sinuses is unremarkable. IMPRESSION: 1. No evidence of acute intracranial trauma. Suleiman Lopez MD 03/11/20 [id number] Thank you for allowing us to participate in the care of your patient.
== END 2020-03-11 14:20 | disposition home or self-care (01) ==
LOC: VM.ED 12:32
DX: S09.90XA Unspecified injury of head, initial encounter (principal); I11.0 Hypertensive heart disease with heart failure; I50.9 Heart failure, unspecified; I25.10 Atherosclerotic heart disease of native coronary artery without angina pectoris; I48.91 Unspecified atrial fibrillation; I10 Essential (primary) hypertension; E78.00 Pure hypercholesterolemia, unspecified; N40.0 Benign prostatic hyperplasia without lower urinary tract symptoms; M19.90 Unspecified osteoarthritis, unspecified site; F03.90 Unspecified dementia, unspecified severity, without behavioral disturbance, psychotic disturbance, mood disturbance, and anxiety; Z95.1 Presence of aortocoronary bypass graft; Z88.1 Allergy status to other antibiotic agents; Z88.8 Allergy status to other drugs, medicaments and biological substances; Z79.899 Other long term (current) drug therapy; Z79.82 Long term (current) use of aspirin; Z79.01 Long term (current) use of anticoagulants; W18.30XA Fall on same level, unspecified, initial encounter
CPT/HCPCS: 36415; 70450; 72125; 80053; 81003; 85025; 85610; 85730; 94760; 99284; 99284-25

== ENCOUNTER 2020-12-18 06:33 | Emergency (ER) | payer OTHER, MEDICARE ==
--- NOTE | 2020-12-18 06:59 | EDM.PDOC ---
ED HPI GENERAL MEDICAL PROBLEM - General Chief Complaint: Respiratory Problem Stated Complaint: Shortness of Breath, upper back pain, neck pain Time Seen by Provider: 12/18/20 06:34 Source of Information: Reports: Patient, EMS History Limitations: Reports: Other (poor historian, hard of hearing, ) - History of Present Illness INITIAL COMMENTS - FREE TEXT/NARRATIVE: Patient presents in a c collar and back boarded for a fall from bed. He states he was in bed, sat up on the edge of the bed and suddenly was on the floor. He is unsure of how he landed, unable to get up. His significant other tried to help him, but unable to get him off the floor. EMs was called, they found him sitting up on the floor. He complained of neck pain and shortness of breath. He is on a c pap, oxygen was not on at the time. sats were 88% and they placed him on oxygen, blood glucose was not done. patient claims of neck pain, upper back pain, and left knee pain. Onset: Today Onset Time: 05:30 Location: Reports: Neck, Chest, Back Severity: Moderate Improves with: Reports: None Worsens with: Reports: None - Related Data Allergies Allergy/AdvReac Type Severity Reaction Status Date / Time amoxicillin Allergy Rash Verified 12/18/20 07:27 simvastatin [From Zocor] AdvReac Leg Cramps Verified 12/18/20 07:27 Home Meds: Home Meds Finasteride [Proscar] 5 mg PO DAILY 05/01/14 [History] Pravastatin [Pravachol] 20 mg PO DAILY 05/01/14 [History] Tamsulosin [Flomax] 0.4 mg PO BEDTIME 05/01/14 [History] Albuterol [Ventolin HFA] 2 puff INH Q4H PRN 04/29/15 [History] Aspirin [Halfprin] 81 mg PO DAILY 04/29/15 [History] Nitroglycerin [Nitrostat] 0.4 mg SL Q5M PRN 04/29/15 [History] Omeprazole 20 mg PO DAILY 04/29/15 [History] Zinc 50 mg PO DAILY 04/29/15 [History] Memantine HCl [Namenda] 10 mg PO BID 05/27/17 [History] metOLazone [Metolazone] 2.5 mg PO WEEKLY PRN 05/27/17 [History] Tiotropium Br/Olodaterol HCl [Stiolto Respimat Inhal Pickerel] 2 puff IH DAILY [History] Diclofenac Sodium [Voltaren] 2 gram TOP BID PRN 08/07/17 [History] Multivitamin [Multivitamins] 1 tab PO DAILY 10/10/19 [History] Phytonadione [Vitamin K] 100 mcg PO DAILY 10/10/19 [History] Furosemide [Lasix] 60 mg PO BID #90 tablet 10/14/19 [Rx] Metoprolol Tartrate 25 mg PO BID #30 tablet 10/14/19 [Rx] Warfarin [Coumadin] 2 mg PO DAILY #30 tablet 10/14/19 [Rx] Psyllium [Metamucil] 0.52 gm PO BEDTIME 02/23/20 [History] Vitamin B Complex [B Complex] 1 tab PO DAILY 02/23/20 [History] aMILoride [Midamor] 5 mg PO BID 03/11/20 [History] Levothyroxine [Synthroid] 50 mcg PO ACBREAKFAST 12/18/20 [History] Potassium Chloride 40 meq PO DAILY #120 cup 12/18/20 [Rx] Past Medical History HEENT History: Reports: Hard of Hearing, Impaired Vision, Macular Degeneration, Other (See Below) Other HEENT History: blepharitis. retinal detachment Cardiovascular History: Reports: Afib, CAD, Heart Failure, High Cholesterol, Hypertension, Other (See Below) Other Cardiovascular History: stenosis of right carotid artery Respiratory History: Reports: Sleep Apnea, Other (See Below) Other Respiratory History: restrictive lung disease. pleural effusion on right. dyspnea Gastrointestinal History: Reports: GI Bleed, PUD Genitourinary History: Reports: BPH, Other (See Below) Other Genitourinary History: solitary kidney. nocturia. solitary kidney. p rostate nodule Musculoskeletal History: Reports: Arthritis Neurological History: Reports: Other (See Below) Other Neuro History: dementia. chronic fatigue syndrome. RLS Psychiatric History: Reports: Dementia Endocrine/Metabolic History: Reports: Other (See Below) Other Endocrine/Metabolic History: hyponatremia. hyperglycemia. prediabetes Hematologic History: Reports: Anemia Oncologic (Cancer) History: Reports: Renal Dermatologic History: Reports: Eczema - Past Surgical History Cardiovascular Surgical History: Reports: Coronary Artery Bypass Musculoskeletal Surgical History: Reports: Arthroscopic Knee Social & Family History - Caffeine Use Caffeine Use: Reports: Coffee Caffeine Use Comment: 4 cups in day ED ROS GENERAL - Review of Systems Review Of Systems: See Below Constitutional: Reports: Weakness HEENT: Reports: No Symptoms Respiratory: Reports: Shortness of Breath Cardiovascular: Reports: Palpitations Endocrine: Reports: No Symptoms GI/Abdominal: Reports: No Symptoms : Reports: No Symptoms Musculoskeletal: Reports: Back Pain (upper back, neck ), Joint Pain (left knee) Skin: Reports: No Symptoms Neurological: Reports: No Symptoms ED EXAM, UPPER BACK/NECK PAIN - Physical Exam Exam: See Below Exam Limited By: Other (poor historian, hard of hearing) General Appearance: Alert, No Apparent Distress, Other (on back board and c collar applied) Eye Exam: Bilateral Eye: EOMI, PERRL (constricted pupils bilaterally equal) Ears Exam: Normal External Exam, Normal TMs Nose Exam: Normal Inspection Throat/Mouth Exam: Normal Inspection, Normal Lips, Normal Oropharynx, Normal Voice, No Airway Compromise Head Exam: Atraumatic Neck Exam: Stiff Neck, Tenderness, Other (in c collar) Cardiovascular/Respiratory: Irregularly Irregular (consistent with his atrial fibrillation) GI/Abdominal: Normal Bowel Sounds, Soft, Non-Tender Rectal (Males) Exam: Other (normal sphincter tone) Back Exam: Normal Inspection, Vertebral Tenderness (mid t spine, no deformity or lesions) Extremities: Normal Inspection, Leg Pain (left knee to flexion), Other (able to move upper extremities without deficit, able to move lower extremities without deficit, ) Neurologic: Alert, Other (confused, unsure of place, year) Skin Exam: Normal Color #1 Interpretation EKG Date: 12/18/20 Time: 06:44 Rhythm: A-Fib [place]: Normal QRS: Normal Comparison: No Change Course - Vital Signs Last Recorded V/S: Last Vital Signs Temp 36.3 C 12/18/20 07:49 Pulse 61 12/18/20 07:49 Resp 20 12/18/20 07:49 BP 88/55 L 12/18/20 07:49 Pulse Ox 93 L 12/18/20 07:49 - Orders/Labs/Meds Orders: Active Orders 24 hr Category Date Time Status Glucose [Blood Glucose Check, Bedside] [RC] ONETIME Care 12/18/20 07:00 Active Sodium Chloride/KCl [Thermotabs] Med 12/18/20 08:15 Active 1 each PO BID Medication Orders Oral Electrolytes (Sodium Chloride/Potassium Chloride Tab) 1 each PO BID LARISA Last Admin: 12/18/20 08:23 Dose: 1 each Documented by: CHEMO Labs: Laboratory Tests 12/18/20 12/18/20 12/18/20 Range/Units 07:02 07:07 07:07 WBC 6.5 (4.0-10.0) x10^3/uL RBC 3.72 L (4.5-6.0) x10^6/uL Hgb 10.0 L D (14.0-18.0) g/dL Hct 30.4 L (40.0-52.0) % MCV 81.7 D (78.0-93.0) fL MCH 26.9 (26.0-32.0) pg MCHC 32.9 (32.0-36.0) g/dL RDW Coeff of Tyson 14.8 (10.0-15.0) % Plt Count 169 (130-400) x10^3/uL Neut % (Auto) 75.4 (50.0-80.0) % Lymph % (Auto) 7.1 L (25.0-50.0) % Conway % (Auto) 9.6 (2.0-11.0) % Eos % (Auto) 7.7 H (0.0-4.0) % Baso % (Auto) 0.2 (0.2-1.2) % PT 22.7 H (9.9-12.5) SEC INR 2.0 (2.0-3.5) Sodium (136-145) mmol/L Potassium (3.5-5.1) mmol/L Chloride (98-107) mmol/L Carbon Dioxide (21-32) mmol/L Anion Gap (5-15) mmol/L BUN (7-18) mg/dL Creatinine (0.70-1.30) mg/dL Est Cr Clr Drug Dosing Estimated GFR (MDRD) Glucose (70-99) mg/dL POC Glucose 92 (70-99) mg/dL Calcium (8.5-10.1) mg/dL 12/18/20 Range/Units 07:07 WBC (4.0-10.0) x10^3/uL RBC (4.5-6.0) x10^6/uL Hgb (14.0-18.0) g/dL Hct (40.0-52.0) % MCV (78.0-93.0) fL MCH (26.0-32.0) pg MCHC (32.0-36.0) g/dL RDW Coeff of Tyson (10.0-15.0) % Plt Count (130-400) x10^3/uL Neut % (Auto) (50.0-80.0) % Lymph % (Auto) (25.0-50.0) % Conway % (Auto) (2.0-11.0) % Eos % (Auto) (0.0-4.0) % Baso % (Auto) (0.2-1.2) % PT (9.9-12.5) SEC INR (2.0-3.5) Sodium 125 L* D (136-145) mmol/L Potassium 3.1 L (3.5-5.1) mmol/L Chloride 85 L D (98-107) mmol/L Carbon Dioxide 35 H (21-32) mmol/L Anion Gap 8.1 (5-15) mmol/L BUN 67 H D (7-18) mg/dL Creatinine 2.0 H (0.70-1.30) mg/dL Est Cr Clr Drug Dosing TNP Estimated GFR (MDRD) 32 Glucose 101 H (70-99) mg/dL POC Glucose (70-99) mg/dL Calcium 7.8 L (8.5-10.1) mg/dL Meds: Medications Generic Name Dose Route Start Last Admin Trade Name Freq PRN Reason Stop Dose Admin Oral Electrolytes 1 each 12/18/20 08:15 12/18/20 08:23 Sodium Chloride/Potassium Chloride Tab PO 1 each BID LARISA Administration Discontinued Medications Generic Name Dose Route Start Last Admin Trade Name Freq PRN Reason Stop Dose Admin Fentanyl 25 mcg 12/18/20 08:55 Fentanyl 50 Mcg/Ml Sdv IVPUSH 12/18/20 08:56 ONETIME ONE Potassium Chloride 40 meq 12/18/20 08:05 12/18/20 08:23 Potassium Chloride 10% 20 Meq/15 Ml Soln 15 Ml Ud Cup PO 12/18/20 08:06 40 meq ONETIME ONE Administration - Radiology Interpretation Free Text/Narrative:: c spine ct negative, head ct negative. left knee with osteoarthritis. Ct chest with moderate right hydropneumothorax, fluid component mildly increased and pneumothorax new relative to 2018 comparison. age indeterminate. no rib fractures. Small volume of free fluid in the upper abdomen interpreted by radiology - Re-Assessments/Exams Free Text/Narrative Re-Assessment/Exam: 12/18/20 07:20 patient presents via ems for fall from a sitting position from bed. On a blood thinner, no known head injury but poor historian. Will get ct head, neck and chest due to pain. x ray knee. Has signficant CHF, on a c pap, will put on ox ygen. c collar kept on. blood glucose 96 12/18/20 08:02 Patient has hyponatremia today, has 60 mg lasix bid that he takes. Last labs were 2 weeks ago and sodium was 130, creatinine is usually 1.57-2, bun ranges from 50-65. cos usually 35 consistent with chronic problems 12/18/20 08:08 potaassium is low, 40 meq here, sodium lower than 2 weeks ago. salt tablet now . Needs increase in sodium in diet and close follow up. not on home potassium 12/18/20 08:10 12/18/20 08:50 Patient has a estimated 30% pneumonia with a loculated pleural effusion that is long standing on the right. Breathing well, on 2 lpm nasal canula. Is on a blood thinner. Given his hyponatremia, and anti-coagulated state. Feel transfer for observation and possible interventional radiology for small chest tube if needed is more beneficial . Unsure of the age of the pneumothorax, and no associated rib fractures, observe for now. small amount of free fluid in the abdomen, has signifcant chf history. No abdominal pain or signs of trauma, ambulating in the ed. Serial hemoglobins and possible ultrasound if needed by [place] is appropriate at this time. Patient is stable at this time. no respiratory distress. Call to [facility] one call. Dr. Frye ER physician accepts. EMS contacted 12/18/20 09:12 vital signs bp 96/54, heart rate 63, 100% on 2lpm NC. requests something for pain 25 mq fentanyl given. Patient has documented low blood pressures at baseline. 12/18/20 09:16 Departure - Departure Time of Disposition: 09:10 Disposition: DC/Tfer to [facility] 02 Clinical Impression: Fall, Back pain due to injury, Hyponatremia, Hypokalemia, Pneumothorax - Discharge Information *PRESCRIPTION DRUG MONITORING PROGRAM REVIEWED*: Not Applicable *COPY OF PRESCRIPTION DRUG MONITORING REPORT IN PATIENT DON: Not Applicable Prescriptions: Potassium Chloride 40 meq PO DAILY #120 cup Instructions: Hyponatremia, Hypokalemia, Acute Back Pain, Adult, Potassium Content of Foods Referrals: Dior Orantes DO [Primary Care Provider] - Forms: ED Department Discharge, [facility] Sepsis Event Note (ED) - Focused Exam Vital Signs: Vital Signs Temp Pulse Resp BP Pulse Ox 12/18/20 07:49 36.3 C 61 20 88/55 L 93 L - My Orders Last 24 Hours: My Active Orders 12/18/20 07:00 Glucose [Blood Glucose Check, Bedside] [RC] ONETIME 12/18/20 08:15 Sodium Chloride/KCl [Thermotabs] 1 each PO BID - Assessment/Plan Last 24 Hours: My Active Orders 12/18/20 07:00 Glucose [Blood Glucose Check, Bedside] [RC] ONETIME 12/18/20 08:15 Sodium Chloride/KCl [Thermotabs] 1 each PO BID
[2020-12-18 07:31] LABS: CHLORIDE,CL 85 mmol/L (98-107)
[2020-12-18 07:37] LABS: SODIUM,NA 125 mmol/L (136-145)
[2020-12-18 07:38] LABS: ANION GAP 8.1 mmol/L (5-15)
[2020-12-18] MEDS ORDERED: Potassium Chloride 10% 20 MEQ/15 ML Soln 15 ML UD Cup PO ONE (08:05)
[2020-12-18] MEDS ORDERED: Sodium Chloride/Potassium Chloride Tab PO SCH (08:15)
--- NOTE | 2020-12-18 08:23 | CT ---
[id number] CT/CT Head WO IV EXAM: NONCONTRAST HEAD CT INDICATION: FALL, HIT HEAD ON BLOOD THINNER COMPARISON: March 11, 2020. DISCUSSION: There is mild generalized atrophy. Stable small right frontal convexity arachnoid cyst. Mild multifocal white matter hypoattenuation is nonspecific, but generally ascribed to chronic small vessel ischemia. Small chronic right cerebellar lacunar infarct. No mass effect or midline shift. No acute hemorrhage or extra-axial fluid collection. No acute territorial infarct is identified. Previous left scleral buckling. IMPRESSION: 1. No acute intracranial findings. Suleiman Lopez MD 12/18/20 0822 Thank you for allowing us to participate in the care of your patient.
--- NOTE | 2020-12-18 08:28 | CT ---
[id number] CT/CT Cervical Spine WO IV EXAM: NONCONTRAST CERVICAL SPINE CT INDICATION: FALL, NECK PAIN COMPARISON: March 11, 2020. DISCUSSION: 3 mm spondylolisthesis C5-C6 unchanged. The vertebral bodies are otherwise normal in height and alignment. No fracture or suspicious osseous lesion is identified. Moderate disc degeneration C3-C4, C5-C6 and C6-C7 with milder changes at the remaining disc levels. Ankylosis of the facets on the right C3-C4 and C4-C5 and on the left at C2-C3 and C3-C4. A right pneumothorax only further detailed on a dedicated chest CT. IMPRESSION: 1. No evidence of acute cervical spine trauma. Suleiman Lopez MD 12/18/20 0827 Thank you for allowing us to participate in the care of your patient.
--- NOTE | 2020-12-18 08:39 | CT ---
[id number] CT/CT Chest WO IV EXAM: CHEST CT WITHOUT CONTRAST INDICATION: FALL, CHEST PAIN UPPER BACK COMPARISON: November 20, 2017. DISCUSSION: Moderate right hydropneumothorax. The fluid component has mildly increased and the pneumothorax is new relative to the previous exam. This process is mildly loculated with an adherent portion of the right upper lobe contacting the chest wall. Cardiomegaly. Previous sternotomy with coronary artery bypass graft placement. Partial atelectasis of both lower lobes with scattered subsegmental atelectasis throughout the remaining lobes. No infiltrates are identified. Chronic calcification or hyperdense material in the right hepatorenal fossa is unchanged. Small volume free fluid in the upper abdomen. No acute fracture is identified. Degenerative changes throughout the spine. Results called at time dictation. IMPRESSION: 1. Moderate right hydropneumothorax with mild loculation may be from chronic underlying pleural scarring. 2. Small volume free fluid in the upper abdomen. Suleiman Lopez MD 12/18/20 0837 Thank you for allowing us to participate in the care of your patient.
--- NOTE | 2020-12-18 08:42 | CR ---
[id number] RAD/RAD Knee Left 3V EXAM: RAD Knee Left 3V INDICATION: FALL COMPARISON: None. DISCUSSION: Moderate to advanced patellofemoral and moderate medial lateral compartment osteoarthritis. Chondrocalcinosis in the medial and lateral compartments. Mild soft tissue swelling throughout the imaged portions of the extremity. Trace knee effusion. Arterial calcifications. No acute fracture or dislocation is identified. IMPRESSION: 1. Diffuse soft tissue swelling. No acute osseous abnormality. Suleiman Lopez MD 12/18/20 0841 Thank you for allowing us to participate in the care of your patient.
[2020-12-18] MEDS ORDERED: fentaNYL 50 MCG/ML SDV IVPUSH ONE (08:55)
[2020-12-18 10:38] VITALS: BP 112/60; PULSE 60
== END 2020-12-18 10:00 | disposition short-term general hospital (02) ==
LOC: VM.ED 06:33 → SUPCPDRO 06:33 → VM.ED 10:00
DX: J93.9 Pneumothorax, unspecified (principal); M54.6 Pain in thoracic spine; G89.11 Acute pain due to trauma; E87.6 Hypokalemia; E87.1 Hypo-osmolality and hyponatremia; I48.91 Unspecified atrial fibrillation; I25.10 Atherosclerotic heart disease of native coronary artery without angina pectoris; I11.0 Hypertensive heart disease with heart failure; I50.9 Heart failure, unspecified; E78.00 Pure hypercholesterolemia, unspecified; Z79.01 Long term (current) use of anticoagulants; Z79.899 Other long term (current) drug therapy
CPT/HCPCS: 36415; 70450; 71250; 72125; 73562-LT; 80048; 82947; 85025; 85610; 93005; 93010; 96374; 99284; 99285-25; A9270-GY; J3010

== ENCOUNTER 2021-01-01 06:35 | Emergency (ER) | payer OTHER, MEDICARE ==
[2021-01-01] MEDS ORDERED: Sodium Chloride 0.9% 1,000 ML IV ONE (06:56)
[2021-01-01] MEDS ORDERED: Sodium Chloride 0.9% 10 ML Syringe FLUSH PRN (06:56)
[2021-01-01 07:23] VITALS: BP 88/49; PULSE 85
[2021-01-01 07:38] LABS: CHLORIDE,CL 102 mmol/L (98-107); SODIUM,NA 138 mmol/L (136-145)
[2021-01-01 07:39] LABS: ANION GAP 9.3 mmol/L (5-15)
--- NOTE | 2021-01-01 07:42 | EDM.PDOC ---
ED HPI GENERAL MEDICAL PROBLEM - General Chief Complaint: Respiratory Problem Stated Complaint: weakness Time Seen by Provider: 01/01/21 06:45 Source of Information: Reports: Patient, [facility] Records, Old Records History Limitations: Reports: Altered Mental Status - History of Present Illness INITIAL COMMENTS - FREE TEXT/NARRATIVE: Patient was sent from the jail with a syncopal episode. He is new to them this last week. He has dementia, atrial fibrillation, chronically on O2 and was recently hospitalized. detention did not give much information other than they were assisting him with getting up to the bathroom and he had a syncopal episode. They lowered him to the ground. He is chronically on o2, but was not on it at the time. They called the ED for an ambulance. They were directed to call 911. EMS found him hypoxic, put him on non rebreather and transported him. Patient is not a reliable historian. Onset: Today Duration: Hour(s): Location: Reports: Abdomen Associated Symptoms: Reports: Confusion, Syncope Treatments [employer]: Reports: Oxygen - Related Data Allergies Allergy/AdvReac Type Severity Reaction Status Date / Time amoxicillin Allergy Rash Verified 12/18/20 07:27 simvastatin [From Zocor] AdvReac Leg Cramps Verified 12/18/20 07:27 Home Meds: Home Meds Finasteride [Proscar] 5 mg PO DAILY 05/01/14 [History] Pravastatin [Pravachol] 20 mg PO DAILY 05/01/14 [History] Tamsulosin [Flomax] 0.4 mg PO BEDTIME 05/01/14 [History] Albuterol [Ventolin HFA] 2 puff INH Q4H PRN 04/29/15 [History] Aspirin [Halfprin] 81 mg PO DAILY 04/29/15 [History] Nitroglycerin [Nitrostat] 0.4 mg SL Q5M PRN 04/29/15 [History] Omeprazole 20 mg PO DAILY 04/29/15 [History] Zinc 50 mg PO DAILY 04/29/15 [History] Memantine HCl [Namenda] 10 mg PO BID 05/27/17 [History] metOLazone [Metolazone] 2.5 mg PO WEEKLY PRN 05/27/17 [History] Tiotropium Br/Olodaterol HCl [Stiolto Respimat Inhal [place]] 2 puff IH DAILY 06/17/17 [History] Diclofenac Sodium [Voltaren] 2 gram TOP BID PRN 08/07/17 [History] Multivitamin [Multivitamins] 1 tab PO DAILY 10/10/19 [History] Phytonadione [Vitamin K] 100 mcg PO DAILY 10/10/19 [History] Furosemide [Lasix] 60 mg PO BID #90 tablet 10/14/19 [Rx] Metoprolol Tartrate 25 mg PO BID #30 tablet 10/14/19 [Rx] Warfarin [Coumadin] 2 mg PO DAILY #30 tablet 10/14/19 [Rx] Psyllium [Metamucil] 0.52 gm PO BEDTIME 02/23/20 [History] Vitamin B Complex [B Complex] 1 tab PO DAILY 02/23/20 [History] aMILoride [Midamor] 5 mg PO BID 03/11/20 [History] Levothyroxine [Synthroid] 50 mcg PO ACBREAKFAST 12/18/20 [History] Potassium Chloride 40 meq PO DAILY #120 cup 12/18/20 [Rx] Past Medical History HEENT History: Reports: Hard of Hearing, Impaired Vision, Macular Degeneration, Other (See Below) Other HEENT History: blepharitis. retinal detachment Cardiovascular History: Reports: Afib, CAD, Heart Failure, High Cholesterol, Hypertension, Other (See Below) Other Cardiovascular History: stenosis of right carotid artery Respiratory History: Reports: Sleep Apnea, Other (See Below) Other Respiratory History: restrictive lung disease. pleural effusion on right. dyspnea Gastrointestinal History: Reports: GI Bleed, PUD Genitourinary History: Reports: BPH, Other (See Below) Other Genitourinary History: solitary kidney. nocturia. solitary kidney. prostate nodule Musculoskeletal History: Reports: Arthritis Neurological History: Reports: Other (See Below) Other Neuro History: dementia. chronic fatigue syndrome. RLS Psychiatric History: Reports: Dementia Endocrine/Metabolic History: Reports: Other (See Below) Other Endocrine/Metabolic History: hyponatremia. hyperglycemia. prediabetes Hematologic History: Reports: Anemia Oncologic (Cancer) History: Reports: Renal Dermatologic History: Reports: Eczema - Past Surgical History Cardiovascular Surgical History: Reports: Coronary Artery Bypass Musculoskeletal Surgical History: Reports: Arthroscopic Knee Social & Family History - Family History Family Medical History: No Pertinent Family History - Caffeine Use Caffeine Use: Reports: Coffee Caffeine Use Comment: 4 cups in day ED [facility] GENER[facility] - Review of Systems Review Of Systems: Unable To Obtain Reason Not Obtained: dementia, poor historian Constitutional: Reports: Fatigue Respiratory: Reports: Shortness of Breath GI/Abdominal: Reports: Abdominal Pain Neurological: Reports: Syncope ED EXAM, GENERAL - Physical Exam Exam: See Below Exam Limited By: Altered Mental Status General Appearance: Alert, WD/WN, Mild Distress Eye Exam: Bilateral Eye: EOMI (pinpoint pupils), Normal Inspection Nose: Normal Inspection, Normal Mucosa Throat/Mouth: Other (dry mucous membranes) Head: Atraumatic Respiratory/Chest: Decreased Breath Sounds (bases), Crackles, Accessory Muscle Use, Prolonged Expiration, Other (healing chest tube site right lower anterior chest with echymosis to the flank) GI/Abdominal: Soft, Tender, Other (flankl echymosis) Extremities: Pedal Edema, Slow Capillary Refill, Mottled (extremities and fingers, cool) Neurological: Confused, Slow to Respond (but starts to respond to voice and yells out,.) #1 Interpretation EKG Date: 01/01/21 Time: 06:39 Rhythm: A-Fib P-Wave: Variable ST-T: Other (no stemi, paired PVC, frequent, nonspecific st changes) Course - Vital Signs Last Recorded V/S: Last Vital Signs Temp 36.6 C 01/01/21 06:35 Pulse 85 01/01/21 06:35 Resp 12 01/01/21 06:35 BP 88/49 L 01/01/21 06:35 Pulse Ox 81 L 01/01/21 06:35 - Orders/Labs/Meds Orders: Active Orders 24 hr Category Date Time Status EKG 12 Lead [EKG Documentation Completion] [RC] STAT Care 01/01/21 06:58 Active Oxygen Therapy [RC] ASDIRECTED Care 01/01/21 06:57 Active Sodium Chloride 0.9% [Saline Flush] Med 01/01/21 06:56 Active 10 ml FLUSH ASDIRECTED PRN Peripheral IV Insertion Adult [OM.PC] Routine Oth 01/01/21 06:56 Ordered Medication Orders Sodium Chloride (Sodium Chloride 0.9% 10 Ml Syringe) 10 ml FLUSH ASDIRECTED PRN PRN Reason: Keep Vein Open Labs: Laboratory Tests 07/04/21 07/04/21 07/04/21 Range/Units 06:50 06:50 06:50 WBC 11.9 H (4.0-10.0) x10^3/uL RBC 4.22 L (4.5-6.0) x10^6/uL Hgb 11.0 L (14.0-18.0) g/dL Hct 37.6 L (40.0-52.0) % MCV 89.1 D (78.0-93.0) fL MCH 26.1 (26.0-32.0) pg MCHC 29.3 L (32.0-36.0) g/dL RDW Coeff of Tyson 16.5 H (10.0-15.0) % Plt Count 212 (130-400) x10^3/uL Add Manual Diff Yes Neutrophils % (Manual) 85 H (50-80) % Lymphocytes % (Manual) 1 L (25-50) % Reactive Lymphs % 2 H (0) % Monocytes % (Manual) 10 (2-11) % Eosinophils % (Manual) 2 (0-4) % Vacuolated Monocytes Rare Toxic Granulation Rare Platelet Estimate Adequate Hypochromasia 1+ slight H Anisocytosis 1+ slight H Target Cells Rare Ovalocytes 1+ slight H Rouleaux 1+ slight H PT 14.7 H D (9.9-12.5) SEC INR 1.3 L (2.0-3.5) Sodium 138 D (136-145) mmol/L Potassium 5.3 H D (3.5-5.1) mmol/L Chloride 102 D (98-107) mmol/L Carbon Dioxide 32 (21-32) mmol/L Anion Gap 9.3 (5-15) mmol/L BUN 101 H* D (7-18) mg/dL Creatinine 2.2 H (0.70-1.30) mg/dL Est Cr Clr Drug Dosing TNP Estimated GFR (MDRD) 29 Glucose 132 H (70-99) mg/dL Lactic Acid (0.4-2.0) mmol/L Calcium 8.4 L (8.5-10.1) mg/dL Corrected Calcium 9.7 (8.5-10.1) mg/dL Magnesium 2.3 (1.8-2.4) mg/dL Total Bilirubin 0.3 (0.2-1.0) mg/dL AST 21 (15-37) U/L ALT 24 (16-63) U/L Alkaline Phosphatase 105 (46-116) U/L Troponin I High Sens 18 (<=76) ng/L NT-Pro-B Natriuret Pep 7108 H (<=450) pg/mL Total Protein 5.9 L (6.4-8.2) g/dL Albumin 2.4 L (3.4-5.0) g/dL Globulin 3.5 Albumin/Globulin Ratio 0.69 SARS CoV-2 RNA Rapid FLEX (NEGATIVE) 01/01/21 01/01/21 Range/Units 06:50 07:32 WBC (4.0-10.0) x10^3/uL RBC (4.5-6.0) x10^6/uL Hgb (14.0-18.0) g/dL Hct (40.0-52.0) % MCV (78.0-93.0) fL MCH (26.0-32.0) pg MCHC (32.0-36.0) g/dL RDW Coeff of Tyson (10.0-15.0) % Plt Count (130-400) x10^3/uL Add Manual Diff Neutrophils % (Manual) (50-80) % Lymphocytes % (Manual) (25-50) % Reactive Lymphs % (0) % Monocytes % (Manual) (2-11) % Eosinophils % (Manual) (0-4) % Vacuolated Monocytes Toxic Granulation Platelet Estimate Hypochromasia Anisocytosis Target Cells Ovalocytes Rouleaux PT (9.9-12.5) SEC INR (2.0-3.5) Sodium (136-145) mmol/L Potassium (3.5-5.1) mmol/L Chloride (98-107) mmol/L Carbon Dioxide (21-32) mmol/L Anion Gap (5-15) mmol/L BUN (7-18) mg/dL Creatinine (0.70-1.30) mg/dL Est Cr Clr Drug Dosing Estimated GFR (MDRD) Glucose (70-99) mg/dL Lactic Acid 1.6 (0.4-2.0) mmol/L Calcium (8.5-10.1) mg/dL Corrected Calcium (8.5-10.1) mg/dL Magnesium (1.8-2.4) mg/dL Total Bilirubin (0.2-1.0) mg/dL AST (15-37) U/L ALT (16-63) U/L Alkaline Phosphatase (46-116) U/L Troponin I High Sens (<=76) ng/L NT-Pro-B Natriuret Pep (<=450) pg/mL Total Protein (6.4-8.2) g/dL Albumin (3.4-5.0) g/dL Globulin Albumin/Globulin Ratio SARS CoV-2 RNA Rapid FLEX Negative (NEGATIVE) Meds: Medications Generic Name Dose Route Start Last Admin Trade Name Freq PRN Reason Stop Dose Admin Sodium Chloride 10 ml 01/01/21 06:56 Sodium Chloride 0.9% 10 Ml Syringe FLUSH ASDIRECTED PRN Keep Vein Open Discontinued Medications Generic Name Dose Route Start Last Admin Trade Name Freq PRN Reason Stop Dose Admin Furosemide 60 mg 01/01/21 08:00 01/01/21 09:01 Furosemide 40 Mg/4 Ml Vial IV 01/01/21 08:01 60 mg ONETIME ONE Administration Sodium Chloride 1,000 mls @ 999 mls/hr 01/01/21 06:56 01/01/21 09:08 Normal Saline IV 01/01/21 07:56 999 mls/hr ONETIME ONE Administration - Radiology Interpretation Free Text/Narrative:: chest x-ray with cardiomegaly and central vascular congestion, small bilateral pleural effusions and bi-basal edema. suggestive of congestive heart failure interpreted by radiology head CT with no acute intercranial findings. interpreted by radiology abdomen and pelvis ct without contrast with chronic hydropneumothorax on the right, minimal free fluid in the abdomen, no acute problems. discussed with radiology - Re-Assessments/Exams Free Text/Narrative Re-Assessment/Exam: 01/01/21 07:56 reviewed patients chart from [facility]. Was admitted in [place] 12/18-12/27 for acute respirtory failure, right sided hydropneumothorax with chest tube drainage, CHF, delirium, hypovolemic hypotension. Covid negative. Is on a blood thinner, is on o2 at baseline. Code level 2. Has dementia. creatinine was 1.2 and bun was 65 IV fluids started, O2 on non rebreather was titrated from 15 to 5lpm/. chest x-ray head ct and abdominal ct ordered without contrast. 01/01/21 07:59 01/01/21 08:01 Patient has an CLIFTON, has received one liter of fluid, however his chest x-ray is concerning for significant fluid overload and recurrent right pleural effusion. Will give 60 mg of lasix IVP as he usually take 60 mg bid along with metolazone 2.5 prn , ct scans pending 01/01/21 10:19 Patient has been resting comfortably. no new problems. continued CHF but maintaining sats on 5 of less Lpm. give lasix, diuresing. Will call jail from transfer back. Departure - Departure Time of Disposition: 10:23 Disposition: DC/Tfer to SNF 03 Clinical Impression: Congestive heart failure, Hypoxemia, Hydropneumothorax, CLIFTON (acute kidney in [place]) - Discharge Information *PRESCRIPTION DRUG MONITORING PROGRAM REVIEWED*: Not Applicable *COPY OF PRESCRIPTION DRUG MONITORING REPORT IN PATIENT DON: Not Applicable Referrals: Dior Orantes, [Primary Care Provider] - Forms: ED Department Discharge Additional Instructions: Patient was found to have a slightly elevated creatinine, increased pulmonary edema and slight elevated potassium ( 5.3) probably due to acute kidney injury and should resolve. He was given 1 liter of fluid and 60 mg of lasix with good diuresis and improvement of his stats. Blood pressure improved with the fluids. He needs to be carefully watched for a slight increase in oral fluids and holding the metolazone for now. Creatinine was 1.2 at discharge from [facility] and today it is 2.2. This should be re checked early in the week. He has a chronic hydropneumothorax on the right that was treated recently with a chest tube at [facility]. Continue to monitor. Maintaining his oxygen on [place] at less than 5 lpm. STable for transfer to the jail. Continue other medications other than above Sepsis Event Note (ED) - Evaluation Sepsis Screening Result: No Definite Risk - Focused Exam Vital Signs: Vital Signs Temp Pulse Resp BP Pulse Ox 01/01/21 06:35 36.6 C 85 12 88/49 L 81 L - My Orders Last 24 Hours: My Active Orders 01/01/21 06:56 Sodium Chloride 0.9% [Saline Flush] 10 ml FLUSH ASDIRECTED PRN Peripheral IV Insertion Adult [OM.PC] Routine 01/01/21 06:57 Oxygen Therapy [RC] ASDIRECTED 01/01/21 06:58 EKG 12 Lead [EKG Documentation Completion] [RC] STAT - Assessment/Plan Last 24 Hours: My Active Orders 01/01/21 06:56 Sodium Chloride 0.9% [Saline Flush] 10 ml FLUSH ASDIRECTED PRN Peripheral IV Insertion Adult [OM.PC] Routine 01/01/21 06:57 Oxygen Therapy [RC] ASDIRECTED 01/01/21 06:58 EKG 12 Lead [EKG Documentation Completion] [RC] STAT
[2021-01-01] MEDS ORDERED: Furosemide 40 MG/4 ML VIAL IV ONE (08:00)
--- NOTE | 2021-01-01 08:41 | CR ---
[id number] RAD/RAD Chest PA or AP 1V EXAM: RAD Chest PA or AP 1V INDICATION: HYPOXIA. COMPARISON: February 23, 2020. DISCUSSION/IMPRESSION: Cardiomegaly and central vascular congestion. Small bilateral pleural effusions and bibasal edema. Findings are consistent with congestive heart failure exacerbation. Bernard Lowe MD 01/01/21 0839 Thank you for allowing us to participate in the care of your patient.
--- NOTE | 2021-01-01 09:37 | CT ---
[id number] CT/CT Head WO IV EXAM: CT Head WO IV CLINICAL DATA: ALTERED MENTAL STATUS POST BIOPSY LIVER. COMPARISON STUDY: December 18, 2020. FINDINGS: No intracranial hemorrhage, extra-axial fluid collection, mass, or acute ischemia. No hydrocephalus. Diffuse bilateral symmetric parenchymal atrophy throughout both cerebral hemispheres. Small area of left occipital encephalomalacia. Those findings are similar to the prior examination. Calvarium intact. Paranasal sinuses and mastoid air cells are clear. IMPRESSION: No acute intracranial findings. Bernard Lowe MD 01/01/21 0936 Thank you for allowing us to participate in the care of your patient.
--- NOTE | 2021-01-01 09:56 | CT ---
[id number] CT/CT Abdomen Pelvis WO IV EXAM: CT Abdomen Pelvis WO IV CLINICAL DATA: Abdominal pain and hypoxia. COMPARISON STUDY: CT chest from December 18, 2020. Radiograph from today. FINDINGS: Lung bases demonstrate bilateral effusions correlating with appearance on radiograph from earlier today. However, there is a small hydropneumothorax. Additional history was obtained. Patient is status recent tube drainage of a known hydropneumothorax. This likely accounts for these findings. Hydropneumothorax was seen on examination from December 18, 2020. Pleural thickening on the right suggests a chronic effusion. Small amount of free fluid scattered throughout the abdomen extending into the dependent recesses of the pelvis. Etiology is nonspecific. However, hepatic etiology is possible as liver demonstrates a diffusely nodular contour suggesting underlying hepatocellular disease. Fluid in the abdomen could be sequela of portal hypertension. No evidence of hemoperitoneum. No pneumoperitoneum. No small bowel obstruction. Spleen, pancreas, and adrenal glands are unremarkable. Left kidney is absent. Correlate for history of nephrectomy. Sagittal series 4 demonstrates atrophy of the right kidney inferior pole with cortical calcification. 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 Anasarca throughout the soft tissues. IMPRESSION: Bilateral pleural effusions with right-sided hydropneumothorax. Findings are described above. Mild fluid retention in the abdomen/pelvis. Etiology is somewhat nonspecific but possibly hepatic as there appear to be changes of cirrhosis in the liver. Other findings are described above. Bernard Lowe MD 01/01/21 0955 Thank you for allowing us to participate in the care of your patient.
== END 2021-01-01 11:00 ==
LOC: VM.ED 06:35
DX: I11.0 Hypertensive heart disease with heart failure (principal); I50.9 Heart failure, unspecified; N17.9 Acute kidney failure, unspecified; R09.02 Hypoxemia; J94.8 Other specified pleural conditions; R60.0 Localized edema; Z88.0 Allergy status to penicillin; Z88.8 Allergy status to other drugs, medicaments and biological substances; I48.91 Unspecified atrial fibrillation; I25.10 Atherosclerotic heart disease of native coronary artery without angina pectoris; E78.00 Pure hypercholesterolemia, unspecified; Z79.82 Long term (current) use of aspirin; Z79.01 Long term (current) use of anticoagulants; Z79.899 Other long term (current) drug therapy; Z95.1 Presence of aortocoronary bypass graft; Z20.822 Contact with and (suspected) exposure to COVID-19
CPT/HCPCS: 70450; 71045; 74176; 80053; 83605; 83735; 83880; 84484; 85025; 85610; 93005; 93010; 94760; 96374; 99284; 99285-25; J1940; J7030; U0002

== ENCOUNTER 2021-01-02 14:15 | Emergency (ER) | payer OTHER, MEDICARE ==
[2021-01-02] MEDS ORDERED: Sodium Chloride 0.9% 10 ML Syringe FLUSH PRN (14:24)
--- NOTE | 2021-01-02 14:36 | PCM.EKG ---
#1 Interpretation EKG Date: 01/02/21 Time: 14:28 Rhythm: A-Fib Rate (Beats/Min): 87 [place]: Normal P-Wave: Present QRS: Normal ST-T: Normal QT: Normal Comparison: No Change
[2021-01-02 14:47] LABS: O2 SATURATION VENOUS 59 %; PO2 VENOUS 39 mmHG
[2021-01-02 14:48] LABS: BASE EXCESS VENOUS 3 mmol/L ((-2)-3); BICARBONATE,VENOUS 31 mmol/L (22-29); PH,VENOUS 7.21 pH (7.33-7.43)
[2021-01-02 14:49] LABS: PCO2 VENOUS 77 mmHG (41-51)
[2021-01-02 15:11] LABS: CHLORIDE,CL 104 mmol/L (98-107); SODIUM,NA 140 mmol/L (136-145)
[2021-01-02 15:13] LABS: ANION GAP 11.5 mmol/L (5-15)
--- NOTE | 2021-01-02 15:30 | EDM.PDOC ---
ED HPI GENERAL MEDICAL PROBLEM - General Chief Complaint: General Stated Complaint: ER Time Seen by Provider: 01/02/21 14:15 Source of Information: Reports: Family History Limitations: Reports: Altered Mental Status - History of Present Illness INITIAL COMMENTS - FREE TEXT/NARRATIVE: Patient presents to the emergency department today with his significant other of 13 years with concerns of confusion altered level of consciousness and fluid gain. Primarily the HPI of is obtained from the significant other who has been his primary caregiver for the last couple of years. Patient recently was in the hospital following a hemopneumothorax approximately 2 weeks ago after a fall that he had a chest tube for a short period of time and [facility] prior to going back to his home. He was seen in the emergency department approximately 24 hours goes with increasing shortness of breath and edema. He received fluid as well as Lasix. Today he has had much less level of consciousness. The significant other relates that he has had a 15 pound weight gain in the past 3 days. He is more short of breath and confused. Rest of the HPI is unobtainable. - Related Data Allergies Allergy/AdvReac Type Severity Reaction Status Date / Time amoxicillin Allergy Rash Verified 01/02/21 15:17 simvastatin [From Zocor] AdvReac Leg Cramps Verified 01/02/21 15:17 Home Meds: Home Meds Finasteride [Proscar] 5 mg PO DAILY 05/01/14 [History] Pravastatin [Pravachol] 20 mg PO DAILY 05/01/14 [History] Tamsulosin [Flomax] 0.4 mg PO BEDTIME 05/01/14 [History] Albuterol [Ventolin HFA] 2 puff INH Q4H PRN 04/29/15 [History] Aspirin [Halfprin] 81 mg PO DAILY 04/29/15 [History] Nitroglycerin [Nitrostat] 0.4 mg SL Q5M PRN 04/29/15 [History] Omeprazole 20 mg PO DAILY 04/29/15 [History] Zinc 50 mg PO DAILY 04/29/15 [History] Memantine HCl [Namenda] 10 mg PO BID 05/27/17 [History] metOLazone [Metolazone] 2.5 mg PO WEEKLY PRN 05/27/17 [History] Tiotropium Br/Olodaterol HCl [Stiolto Respimat Inhal [place]] 2 puff IH DAILY 06/17/17 [History] Diclofenac Sodium [Voltaren] 2 gram TOP BID PRN 08/07/17 [History] Multivitamin [Multivitamins] 1 tab PO DAILY 10/10/19 [History] Phytonadione [Vitamin K] 100 mcg PO DAILY 10/10/19 [History] Furosemide [Lasix] 60 mg PO BID #90 tablet 10/14/19 [Rx] Metoprolol Tartrate 25 mg PO BID #30 tablet 10/14/19 [Rx] Warfarin [Coumadin] 2 mg PO DAILY #30 tablet 10/14/19 [Rx] Psyllium [Metamucil] 0.52 gm PO BEDTIME 02/23/20 [History] Vitamin B Complex [B Complex] 1 tab PO DAILY 02/23/20 [History] aMILoride [Midamor] 5 mg PO BID 03/11/20 [History] Levothyroxine [Synthroid] 50 mcg PO ACBREAKFAST 12/18/20 [History] Potassium Chloride 40 meq PO DAILY #120 cup 12/18/20 [Rx] Past Medical History HEENT History: Reports: Hard of Hearing, Impaired Vision, Macular Degeneration, Other (See Below) Other HEENT History: blepharitis. retinal detachment Cardiovascular History: Reports: Afib, CAD, Heart Failure, High Cholesterol, Hypertension, Other (See Below) Other Cardiovascular History: stenosis of right carotid artery Respiratory History: Reports: Sleep Apnea, Other (See Below) Other Respiratory History: restrictive lung disease. pleural effusion on right. dyspnea Gastrointestinal History: Reports: GI Bleed, PUD Genitourinary History: Reports: BPH, Other (See Below) Other Genitourinary History: solitary kidney. nocturia. solitary kidney. prostate nodule Musculoskeletal History: Reports: Arthritis Neurological History: Reports: Other (See Below) Other Neuro History: dementia. chronic fatigue syndrome. RLS Psychiatric History: Reports: Dementia Endocrine/Metabolic History: Reports: Other (See Below) Other Endocrine/Metabolic History: hyponatremia. hyperglycemia. prediabetes Hematologic History: Reports: Anemia Oncologic (Cancer) History: Reports: Renal Dermatologic History: Reports: Eczema - Past Surgical History Cardiovascular Surgical History: Reports: Coronary Artery Bypass Musculoskeletal Surgical History: Reports: Arthroscopic Knee Social & Family History - Family History Family Medical History: No Pertinent Family History - Tobacco Use Tobacco Use Status *Q: Unknown Ever Used Tobacco - Caffeine Use Caffeine Use: Reports: Coffee Caffeine Use Comment: 4 cups in day ED ROS GENERAL - Review of Systems Review Of Systems: Unable To Obtain Reason Not Obtained: Altered level of consciousness ED EXAM, GENERAL - Physical Exam Exam: See Below Free Text/Narrative:: The patient does not open his eyes. He has sitting up in bed. He is maintaining his airway. To painful stimuli he does respond appropriately an attempt to remove the stimuli. The only words that he is speaking is that he is short of breath and he cannot breathe. He minimally follows commands he is moving spontaneously and appropriately. Exam Limited By: Altered Mental Status General Appearance: Obtunded, Mild Distress, Obese Eye Exam: Bilateral Eye: EOMI, PERRL (4) Nose: Normal Inspection Throat/Mouth: Normal Inspection Head: Atraumatic, Normocephalic Neck: Normal Inspection Respiratory/Chest: Respiratory Distress (He is in mild respiratory distress.), Decreased Breath Sounds (Throughout), Rales (Bilaterally), Accessory Muscle Use. No: Rhonchi, Wheezing Cardiovascular: Normal Peripheral Pulses, Irregularly Irregular Peripheral Pulses: 1+: Radial (L), Radial (R), Popliteal (L), Popliteal (R) GI/Abdominal: Normal Bowel Sounds, Soft, Non-Tender, Other (There is a well- healed anterior what I would assume was a chest tube site just below and lateral to the right nipple. There is quite a bit of old bruising on the lateral lower aspect of the rib cage in the mid axillary line that extends into his abdomen.) Back Exam: Normal Inspection Extremities: Normal Capillary Refill, Pedal Edema (There is rather impressive hard nonpitting edema all the way up to his waist. To the point where he is weeping in certain areas.) Neurological: Other (See explanation above) Skin Exam: Dry, Intact, Normal Color, Cool Course - Vital Signs Last Recorded V/S: Last Vital Signs Temp 98.2 F 01/02/21 16:10 Pulse 85 01/02/21 16:10 Resp 18 01/02/21 16:10 BP 111/67 01/02/21 16:10 Pulse Ox 100 01/02/21 16:10 - Orders/Labs/Meds Labs: Laboratory Tests 07/05/21 07/05/21 07/05/21 Range/Units 14:36 14:36 14:36 WBC 11.0 H (4.0-10.0) x10^3/uL RBC 4.13 L (4.5-6.0) x10^6/uL Hgb 10.7 L (14.0-18.0) g/dL Hct 36.4 L (40.0-52.0) % MCV 88.1 (78.0-93.0) fL MCH 25.9 L (26.0-32.0) pg MCHC 29.4 L (32.0-36.0) g/dL RDW Coeff of Tyson 16.2 H (10.0-15.0) % Plt Count 198 (130-400) x10^3/uL Add Manual Diff Yes Neutrophils % (Manual) 88 H (50-80) % Band Neutrophils % 1 (0-6) % Lymphocytes % (Manual) 2 L (25-50) % Reactive Lymphs % 3 H (0) % Monocytes % (Manual) 6 (2-11) % Vacuolated Monocytes 1+ slight H Toxic Granulation Rare Platelet Estimate Adequate Hypochromasia 1+ slight H Anisocytosis 1+ slight H Ovalocytes 1+ slight H VBG pH 7.21 L* (7.33-7.43) pH VBG pCO2 77 H* (41-51) mmHG VBG pO2 39 mmHG VBG HCO3 31 H (22-29) mmol/L VBG Total CO2 32 H (23-30) mmol/L VBG O2 Saturation 59 % VBG Base Excess 3 ((-2)-3) mmol/L Sodium 140 (136-145) mmol/L Potassium 5.5 H (3.5-5.1) mmol/L Chloride 104 (98-107) mmol/L Carbon Dioxide 30 (21-32) mmol/L Anion Gap 11.5 (5-15) mmol/L BUN 95 H* (7-18) mg/dL Creatinine 2.4 H (0.70-1.30) mg/dL Est Cr Clr Drug Dosing TNP Estimated GFR (MDRD) 26 Glucose 113 H (70-99) mg/dL Lactic Acid (0.4-2.0) mmol/L Calcium 8.2 L (8.5-10.1) mg/dL Corrected Calcium 9.4 (8.5-10.1) mg/dL Magnesium 2.4 (1.8-2.4) mg/dL Total Bilirubin 0.3 (0.2-1.0) mg/dL AST 24 (15-37) U/L ALT 26 (16-63) U/L Alkaline Phosphatase 99 (46-116) U/L Troponin I High Sens 23 (<=76) ng/L C-Reactive Protein 2.5 H (<=0.9) mg/dL NT-Pro-B Natriuret Pep 7020 H (<=450) pg/mL Total Protein 6.0 L (6.4-8.2) g/dL Albumin 2.5 L (3.4-5.0) g/dL Globulin 3.5 Albumin/Globulin Ratio 0.71 Procalcitonin (0.1-0.50) ng/mL Urine Color (YELLOW) Urine Appearance (CLEAR) Urine pH (5.0-8.0) Ur Specific [place] Urine Protein (NEGATIVE) mg/dL Urine Glucose (UA) (NEGATIVE) mg/dL Urine Ketones (NEGATIVE) mg/dL Urine Occult Blood (NEGATIVE) Urine Nitrite (NEGATIVE) Urine Bilirubin (NEGATIVE) Urine Urobilinogen (0.2) EU/dL Ur Leukocyte Esterase (NEGATIVE) SARS CoV-2 RNA Rapid FLEX (NEGATIVE) 01/02/21 01/02/21 01/02/21 Range/Units 14:36 14:36 15:45 WBC (4.0-10.0) x10^3/uL RBC (4.5-6.0) x10^6/uL Hgb (14.0-18.0) g/dL Hct (40.0-52.0) % MCV (78.0-93.0) fL MCH (26.0-32.0) pg MCHC (32.0-36.0) g/dL RDW Coeff of Tyson (10.0-15.0) % Plt Count (130-400) x10^3/uL Add Manual Diff Neutrophils % (Manual) (50-80) % Band Neutrophils % (0-6) % Lymphocytes % (Manual) (25-50) % Reactive Lymphs % (0) % Monocytes % (Manual) (2-11) % Vacuolated Monocytes Toxic Granulation Platelet Estimate Hypochromasia Anisocytosis Ovalocytes VBG pH (7.33-7.43) pH VBG pCO2 (41-51) mmHG VBG pO2 mmHG VBG HCO3 (22-29) mmol/L VBG Total CO2 (23-30) mmol/L VBG O2 Saturation % VBG Base Excess ((-2)-3) mmol/L Sodium (136-145) mmol/L Potassium (3.5-5.1) mmol/L Chloride (98-107) mmol/L Carbon Dioxide (21-32) mmol/L Anion Gap (5-15) mmol/L BUN (7-18) mg/dL Creatinine (0.70-1.30) mg/dL Est Cr Clr Drug Dosing Estimated GFR (MDRD) Glucose (70-99) mg/dL Lactic Acid 1.1 (0.4-2.0) mmol/L Calcium (8.5-10.1) mg/dL Corrected Calcium (8.5-10.1) mg/dL Magnesium (1.8-2.4) mg/dL Total Bilirubin (0.2-1.0) mg/dL AST (15-37) U/L ALT (16-63) U/L Alkaline Phosphatase (46-116) U/L Troponin I High Sens (<=76) ng/L C-Reactive Protein (<=0.9) mg/dL NT-Pro-B Natriuret Pep (<=450) pg/mL Total Protein (6.4-8.2) g/dL Albumin (3.4-5.0) g/dL Globulin Albumin/Globulin Ratio Procalcitonin 0.10 (0.1-0.50) ng/mL Urine Color (YELLOW) Urine Appearance (CLEAR) Urine pH (5.0-8.0) Ur Specific [place] Urine Protein (NEGATIVE) mg/dL Urine Glucose (UA) (NEGATIVE) mg/dL Urine Ketones (NEGATIVE) mg/dL Urine Occult Blood (NEGATIVE) Urine Nitrite (NEGATIVE) Urine Bilirubin (NEGATIVE) Urine Urobilinogen (0.2) EU/dL Ur Leukocyte Esterase (NEGATIVE) SARS CoV-2 RNA Rapid FLEX Negative (NEGATIVE) 01/02/21 01/02/21 Range/Units 15:47 16:12 WBC (4.0-10.0) x10^3/uL RBC (4.5-6.0) x10^6/uL Hgb (14.0-18.0) g/dL Hct (40.0-52.0) % MCV (78.0-93.0) fL MCH (26.0-32.0) pg MCHC (32.0-36.0) g/dL RDW Coeff of Tyson (10.0-15.0) % Plt Count (130-400) x10^3/uL Add Manual Diff Neutrophils % (Manual) (50-80) % Band Neutrophils % (0-6) % Lymphocytes % (Manual) (25-50) % Reactive Lymphs % (0) % Monocytes % (Manual) (2-11) % Vacuolated Monocytes Toxic Granulation Platelet Estimate Hypochromasia Anisocytosis Ovalocytes VBG pH 7.21 L* (7.33-7.43) pH VBG pCO2 76 H* (41-51) mmHG VBG pO2 41 mmHG VBG HCO3 31 H (22-29) mmol/L VBG Total CO2 32 H (23-30) mmol/L VBG O2 Saturation 63 % VBG Base Excess 3 ((-2)-3) mmol/L Sodium (136-145) mmol/L Potassium (3.5-5.1) mmol/L Chloride (98-107) mmol/L Carbon Dioxide (21-32) mmol/L Anion Gap (5-15) mmol/L BUN (7-18) mg/dL Creatinine (0.70-1.30) mg/dL Est Cr Clr Drug Dosing Estimated GFR (MDRD) Glucose (70-99) mg/dL Lactic Acid (0.4-2.0) mmol/L Calcium (8.5-10.1) mg/dL Corrected Calcium (8.5-10.1) mg/dL Magnesium (1.8-2.4) mg/dL Total Bilirubin (0.2-1.0) mg/dL AST (15-37) U/L ALT (16-63) U/L Alkaline Phosphatase (46-116) U/L Troponin I High Sens (<=76) ng/L C-Reactive Protein (<=0.9) mg/dL NT-Pro-B Natriuret Pep (<=450) pg/mL Total Protein (6.4-8.2) g/dL Albumin (3.4-5.0) g/dL Globulin Albumin/Globulin Ratio Procalcitonin (0.1-0.50) ng/mL Urine Color Yellow (YELLOW) Urine Appearance Clear (CLEAR) Urine pH 5.5 (5.0-8.0) Ur Specific [place] 1.015 Urine Protein Negative (NEGATIVE) mg/dL Urine Glucose (UA) Negative (NEGATIVE) mg/dL Urine Ketones Negative (NEGATIVE) mg/dL Urine Occult Blood Negative (NEGATIVE) Urine Nitrite Negative (NEGATIVE) Urine Bilirubin Negative (NEGATIVE) Urine Urobilinogen 0.2 (0.2) EU/dL Ur Leukocyte Esterase Negative (NEGATIVE) SARS CoV-2 RNA Rapid FLEX (NEGATIVE) Meds: Medications Discontinued Medications Generic Name Dose Route Start Last Admin Trade Name Freq PRN Reason Stop Dose Admin Sodium Chloride 10 ml 01/02/21 14:24 Sodium Chloride 0.9% 10 Ml Syringe FLUSH ASDIRECTED PRN Keep Vein Open - Radiology Interpretation Free Text/Narrative:: Chest x-ray per radiology shows cardiomegaly and central vascular congestion. Bilateral pleural effusions and bibasilar parenchymal opacities. - Re-Assessments/Exams Free Text/Narrative Re-Assessment/Exam: 01/02/21 IV was established labs are drawn. The patient is quite drowsy. He is maintaining his airway. He has some shallow slow respirations. He is requiring 4 L of oxygen to keep his oxygen saturation in the mid 90s. On room air he was 72% upon arrival. His initial venous blood gases with a venous blood gas of pH 7.21, PCO2 77 PO2 39 although this is venous bicarb at 31 total CO2 32. The patient was placed on BiPAP ventilation due to his hypercapnic respiratory failure. Pressure support of 10 PEEP of 5. 50%. His blood pressure is somewhat labile with a blood pressure of 103/64. Heart rate atrial fibrillation in the rate of 80s. After about 40 minutes of BiPAP ventilation the patient is much more alert. He is talking now. He does not complain of any complaints other than shortness of breath. He has no pain in his chest. A long discussion was held with the patient's power of criminal attorney as well as his longtime significant other and the decision for DNR/DNI has been made. He does have worsening creatinine from yesterday he is up from 2.2-2.4. His lactic acid is normal. His troponin is negative. His EKG extemporaneously reviewed by myself does not show any acute ST elevation or depression. A [place] was placed for accurate I's and O's. The patient's blood pressure is rather labile with a systolic blood pressure of 105. I am unable to give him any Lasix at this time because I would be concerned for hypotension. His mean arterial pressure is approximately 70. I called and spoke with Dr. Couch at [facility] in [place]. HPI ER course findings and my concerns of worsening congestive heart failure as well as peripheral edema almost anasarca acute hypercapnic respiratory failure most likely due to his congestive heart failure and overall deterioration of this rather comorbid patient. He does not have any further guidance or interventions at this time. He does accept the patient in transfer on continued BiPAP. If he does become hypotensive in route we will initiate Levophed. I had a long discussion with the patient's power of criminal attorney his granddaughter Ena as well as his significant other of 13 years. They do both agree that he is a DNR/DNI at this time. He is in guarded status at this time. Their questions were answered. Repeat venous blood gases do not show much improvement of his CO2 level nor his pH. So I increased his pressure support to 15. Continued his oxygen at 40% although his level of consciousness has improved his venous blood gases have not. BiPAP will be continued in route by ALS ambulance to [facility] in [place]. Levophed was sent and directions and guidance for the initiation of it with a mean arterial pressure of below 65. Departure - Departure Time of Disposition: 15:59 Disposition: DC/Tfer to [facility] 02 Clinical Impression: Acute hypercapnic respiratory failure, Hypoxia, Hyperkalemia, Peripheral edema Acute on chronic kidney failure Qualifiers: Acute renal failure type: unspecified Chronic kidney disease stage: unspecified stage Qualified Code(s): N17.9 - Acute kidney failure, unspecified Hypotension Qualifiers: Hypotension type: unspecified hypotension type Qualified Code(s): I95.9 - Hypotension, unspecified CHF (congestive heart failure) Qualifiers: Heart failure type: unspecified Heart failure chronicity: acute on chronic Qualified Code(s): I50.9 - Heart failure, unspecified - Discharge Information Referrals: Dior Orantes DO [Primary Care Provider] - Forms: ED Department Discharge, Interfacility Transfer EMTALA Critical Care Note - Critical Care Note Total Time (mins): 75 Comments: 75 minutes of critical care time in direct care management of this critically ill patient. To include self initiation of BiPAP monitoring settings management of the BiPAP repeat venous blood gases consultation with the patient's family and determination of CODE STATUS as well as consultation with accepting doctors in [place]. Sepsis Event Note (ED) - Evaluation Sepsis Screening Result: No Definite Risk
--- NOTE | 2021-01-02 15:37 | CR ---
[id number] RAD/RAD Chest PA or AP 1V EXAM: RAD Chest PA or AP 1V INDICATION: INCREASED SHORTNESS OF BREATH, HYPOXIA. COMPARISON: Yesterday. DISCUSSION/IMPRESSION: Cardiomegaly and central vascular congestion. Bilateral pleural effusions and bibasal parenchymal opacities. Findings are similar to yesterday. No significant change. Bernard Lowe MD 01/02/21 [id number] Thank you for allowing us to participate in the care of your patient.
[2021-01-02 16:11] VITALS: BP 111/67; PULSE 85
[2021-01-02 16:19] LABS: BASE EXCESS VENOUS 3 mmol/L ((-2)-3); BICARBONATE,VENOUS 31 mmol/L (22-29); O2 SATURATION VENOUS 63 %; PO2 VENOUS 41 mmHG
[2021-01-02 16:20] LABS: PCO2 VENOUS 76 mmHG (41-51); PH,VENOUS 7.21 pH (7.33-7.43)
== END 2021-01-02 16:55 | disposition short-term general hospital (02) ==
LOC: VM.ED 14:15
DX: I95.9 Hypotension, unspecified (principal); I13.0 Hypertensive heart and chronic kidney disease with heart failure and stage 1 through stage 4 chronic kidney disease, or unspecified chronic kidney disease; N17.9 Acute kidney failure, unspecified; N18.9 Chronic kidney disease, unspecified; I50.9 Heart failure, unspecified; J96.01 Acute respiratory failure with hypoxia; J96.02 Acute respiratory failure with hypercapnia; R60.0 Localized edema; E87.5 Hyperkalemia; Z20.822 Contact with and (suspected) exposure to COVID-19; Z95.1 Presence of aortocoronary bypass graft; I48.91 Unspecified atrial fibrillation; I25.10 Atherosclerotic heart disease of native coronary artery without angina pectoris; Z79.82 Long term (current) use of aspirin; Z79.01 Long term (current) use of anticoagulants; Z79.899 Other long term (current) drug therapy; Z88.0 Allergy status to penicillin; Z88.8 Allergy status to other drugs, medicaments and biological substances
CPT/HCPCS: 36415; 71045; 80053; 81003; 82803; 83605; 83735; 83880; 84145; 84484; 85025; 86140; 93005; 93010; 94660; 99284; 99285-25; U0002